=== PATIENT | female | born 1975 | race Caucasian/White ===

== ENCOUNTER 2021-07-22 06:52 | Outpatient (CLI) | payer OTHER, SELFPAY ==
[2021-07-22 07:39] LABS: Basophils Percent Auto 0.4 % (0.2-1.2); Eosinophils Absolute Auto 0.1 K/mm3 (0-0.3); Hemoglobin 12.6 g/dL (12.0-15.0); Immature Granulocyte Absolute 0.06 K/mm3 (0.00-0.031); Immature Granulocyte Percent A 0.8 % (0-0.5); Lymphocytes Absolute Auto 2.14 K/mm3 (0.9-3.2); Lymphocytes Percent Auto 30.3 % (18.3-44.2); Mean Corpuscular HGB Conc 31.5 g/dl (32-36); Mean Corpuscular Hemoglobin 26.5 pg (26-34); Mean Corpuscular Volume 84.2 fl (80-100); Mean Platelet Volume 9.9 fl (7.4-10.4); Monocytes Absolute Auto 0.6 K/mm3 (0.1-0.6); Monocytes Percent Auto 9.1 % (2.6-8.5); Neutrophils Absolute Auto 4.1 K/mm3 (1.3-6.7); Neutrophils Percent Auto 58.4 % (45.5-73.1); Platelet Count Result 325 k/mm3 (150-375); Red Blood Count 4.75 M/mm3 (4.2-5.4); Red Cell Distribution Width 15.3 % (11.5-14.5); White Blood Count 7.1 K/mm3 (4.5-10.0)
[2021-07-22 07:50] LABS: Alanine Aminotransferase 41 U/L (6-35); Albumin Level 4.3 g/dL (3.5-5.1); Alkaline Phosphatase 109 U/L (38-126); Anion Gap 11 mmol/L (8-16); Aspartate Amino Transferase 33 U/L (14-36); Bilirubin,Total 0.2 mg/dL (0.2-1.3); Blood Urea Nitrogen 21 mg/dL (7-17); Calcium 9.2 mg/dL (8.4-10.2); Carbon Dioxide 24 mmol/L (22-30); Chloride 105 mmol/L (98-107); Cholesterol 189 mg/dL (0-200); Estimated Glomerular Filt Rate > 60; Glucose 128 mg/dL (65-110); HDL Direct 42 mg/dL; Sodium 140 mmol/L (137-145); Triglycerides 269 mg/dL (<150)
[2021-07-22 07:53] LABS: Appearance Urine Clear (Clear); Bilirubin Urine Negative (Negative); Blood Urine Trace-lysed (Negative); Color Urine Yellow (Yellow); Glucose Urine UA Negative (Negative); Ketones Urine Negative (Negative); Leukocyte Esterase Ur Negative LEU/UL (Negative); Nitrate Urine Negative (Negative); Protein Urine Trace mg/dL (Negative); Specific Grav Ur >= 1.030 (1.001-1.035); Urobilinogen Urine 0.2 mg/dL (<2.0)
[2021-07-22 07:58] LABS: Hemoglobin A1C 6.5 % (<5.7)
[2021-07-22 08:00] LABS: Mucus Urine Rare /lpf; RBC Urine 0-2 /hpf (0-2); Squamous Epithelial Cell Urine Rare /hpf (Few); WBC Urine 0-3 /hpf
[2021-07-22 08:01] LABS: LDL Cholesterol Direct 93 mg/dL
[2021-07-22 08:03] LABS: Add Urine Microscopic? YES
[2021-07-22 08:38] LABS: Creatinine Urine 199.2 mg/dL
[2021-07-22 08:44] LABS: MALB Creatinine Ratio 17.1 mg/g (0-30); Microalbumin Urine Random 34.1 mg/L (0-16.7)
[2021-07-22 08:53] LABS: Free T4 Free Thyroxine 1.04 ng/mL (0.78-2.19)
[2021-07-25 05:11] LABS: Homocysteine 12.5 umol/L (<10.4)
[2021-07-25 05:35] LABS: Insulin Level Total 7.6 uIU/mL (<=19.6)
[2021-07-27 08:15] LABS: C-Peptide 2.04 ng/mL (0.80-3.85)
== END 2021-07-22 06:53 | disposition home or self-care (01) ==
LOC: ANHLAB 06:57
PROVIDERS: PCP Internal Medicine; Visit Provider Internal Medicine
DX: E11.9 Type 2 diabetes mellitus without complications (principal); E55.9 Vitamin D deficiency, unspecified; I10 Essential (primary) hypertension; Z13.29 Encounter for screening for other suspected endocrine disorder; Z13.220 Encounter for screening for lipoid disorders; Z79.899 Other long term (current) drug therapy
CPT/HCPCS: 36415; 80053; 80061; 81001; 82043; 82306; 83036; 83090; 83525; 84439; 84443; 84681; 85025

== ENCOUNTER 2021-08-13 09:01 | Outpatient (CLI) | payer OTHER, SELFPAY ==
--- NOTE | 2021-08-13 09:09 | ECHO_ITS ---
Patient Info Name: Mikala Hall Parent Age: 46 years : 1975 Gender: Female Ht: 69 in Wt: 210 lbs BSA: 2.18 m2 HR: 82 bpm BP: 125 / 93 mmHg Technical Quality: Good Exam Date: 08/13/2021 9:21 AM Exam Location: [facility] Patient Status: Outpatient Admit Date: 08/13/2021 Staff Ordering Physician: J Luis Kapoor MD Abalone Fisherman: Abigail Rae RDCS Attending Provider: J Luis Kapoor MD Referring Physician: Emelia ROSA; Exam Type: CA echo doppler color flow Study Info Indications R01.1 - Cardiac murmur, unspecified Complete two-dimensional, color flow and Doppler transthoracic echocardiogram is performed. Summary 1. Complete two-dimensional, color flow and Doppler transthoracic echocardiogram is performed. 2. Left ventricular chamber dimension is normal. 3. Left ventricular systolic function is normal, estimated at 60-65%. 4. The left ventricular diastolic function is grade I diastolic dysfunction. 5. Global longitudinal strain is normal at -18.2%. 6. There is mild aortic valve sclerosis. 7. There is mild aortic valve regurgitation. 8. No pulmonary hypertension, estimated pulmonary arterial systolic pressure is 18 mmHg. Left Ventricle Tissue doppler is not performed. Global longitudinal strain is normal at -18.2%. Left ventricular chamber dimension is normal. Left ventricular systolic function is normal, estimated at 60-65%. The left ventricular diastolic function is grade I diastolic dysfunction. Right Ventricle Right ventricular systolic function is normal and with normal TAPSE 1.9 cm. Right ventricular chamber dimension is normal. Left Atria Left atrial chamber dimension is normal. Right Atria Right atrial chamber dimension is normal. Aortic Valve The aortic valve is trileaflet. There is mild aortic valve sclerosis. There is no aortic valve stenosis. There is mild aortic valve regurgitation. Pulmonic Valve There is no pulmonic regurgitation. Mitral Valve There is no mitral valve stenosis. There is no mitral valve regurgitation. Tricuspid Valve There is no tricuspid valve regurgitation. No pulmonary hypertension, estimated pulmonary arterial systolic pressure is 18 mmHg. Pericardium/Pleural There is no pericardial effusion. Inferior Vena Cava Normal inferior vena cava with >50% collapse upon inspiration consistent with normal right atrial pressure, 5 mmHg. Aorta The aortic root size at the sinus of Valsalva is normal. Left Ventricular Outflow Tract Name Value Normal LVOT 2D LVOT Diameter 2.0 cm LVOT Doppler LVOT Peak Gradient 6 mmHg LVOT Mean Gradient 4 mmHg LVOT VTI 25 cm LVOT VTI/AV VTI Ratio 0.8 LVOT Stroke Volume 78 ml LVOT CO 6.3 l/min LVOT CI 2.9 l/min/m2 Pulmonic Valve Name Value Normal
[2021-08-13 13:15] LABS: Urine Cotinine NEGATIVE
== END 2021-08-13 09:02 | disposition home or self-care (01) ==
LOC: ANHCARD 09:01
PROVIDERS: PCP Internal Medicine; Visit Provider Internal Medicine
DX: R01.1 Cardiac murmur, unspecified (principal); E11.9 Type 2 diabetes mellitus without complications; I10 Essential (primary) hypertension; I35.1 Nonrheumatic aortic (valve) insufficiency
CPT/HCPCS: 80307; 93306

== ENCOUNTER 2021-10-03 13:37 | Outpatient (CLI) | payer OTHER, SELFPAY ==
--- NOTE | ~2021-10-03 | MR_ITS ---
EXAMINATION: MR brain/brain stem wo/w con DATE: 10/03/2021 14:44 INDICATION: Worsening daily headaches TECHNIQUE: Magnetic resonance imaging (MRI) of the brain and brainstem was performed without and with 18 mL MultiHance intravenous contrast. Sequences included sagittal and axial T1-weighted SE, axial d iffusion-weighted FS EPI ASSET, axial T2*-weighted GRE, axial T2-weighted FLAIR Propeller, and axial T2-weighted Propeller. Postcontrast axial and coronal T1-weighted SE was obtained. Apparent diffusion coefficient (ADC) maps were created. COMPARISON: None. FINDINGS: No abnormal restricted diffusion to suggest acute ischemic infarct. No MRI evidence of hemorrhage or extra-axial collection. No suspicious foci of susceptibility to suggest prior intraparenchymal hemorr joni. . Ventricular system is normal. Basal cisterns patent. Flow voids are preserved. Aerated spaces are arielle ar. No abnormal enhancement. IMPRESSION: 1. Normal brain MRI findings. Reviewed, dictated and finalized at location K.
[2021-10-03 14:24] LABS: Estimated Glomerular Filt Rate 59
== END 2021-10-03 13:38 | disposition home or self-care (01) ==
PROVIDERS: PCP Internal Medicine; Visit Provider Internal Medicine
DX: G43.909 Migraine, unspecified, not intractable, without status migrainosus (principal)
CPT/HCPCS: 70553; A9577

== ENCOUNTER 2022-01-16 07:48 | Outpatient (CLI) | payer OTHER, SELFPAY ==
--- NOTE | ~2022-01-16 | MM_ITS ---
EXAMINATION: MM screening michele BI w [place] HISTORY: Screening mammogram TECHNIQUE: Craniocaudal and mediolateral oblique 3-D tomosynthesis images were obtained and synthetic 2-D images were generated. CAD analysis was submitted and interpreted. COMPARISON: No prior mammogram is available for comparison at this institution. BREAST PARENCHYMAL COMPOSITION: The breasts are almost entirely fatty. FINDINGS: There is no evidence of suspicious mass, calcification, or architectural distortion to sugg est malignancy in either breast. There has been no suspicious interval change. IMPRESSION: 1. No mammographic evidence of malignancy. 2. Recommend routine screening mammography in one year. BI-RADS Category 1: Negative Reviewed, dictated and finalized at location A. DOM OF INFORMATION OFFICER
== END 2022-01-16 07:49 | disposition home or self-care (01) ==
PROVIDERS: PCP Internal Medicine; Visit Provider Internal Medicine
DX: Z12.31 Encounter for screening mammogram for malignant neoplasm of breast (principal)
CPT/HCPCS: 77063; 77067

== ENCOUNTER 2022-02-01 12:06 | Outpatient (CLI) | payer OTHER, SELFPAY ==
--- NOTE | ~2022-02-01 | XR_ITS ---
XR shoulder LT min 2V 02/01/2022 12:28 Indication: Left shoulder pain Procedure: 4 views left shoulder Comparison: No prior studies for comparison. Findings: No fracture, subluxation or dislocation. No significant soft tissue abnormality. No foreign bodies. There is mild osteoarthritis of the acromioclavicular joint. Impression: 1: Mild acromioclavicular joint osteoarthritis. Reviewed, dictated and finalized at location B. ESSIVE ART THERAPIST Impression: 1: Mild acromioclavicular joint osteoarthritis.
--- NOTE | ~2022-02-01 | XR_ITS ---
XR cervical spine 4-5V 02/01/2022 12:28 Indication: Neck pain. Procedure: 4 view cervical spine Comparison: No prior studies for comparison. Findings: There is straightening of cervical lordosis. There is degenerative retrolisthesis at C5-6. There is disc narrowing at this level. No fracture or traumatic malalignment. There is uncinate hyper trophy at C5-6. Odontoid process is normal. Lateral masses normally aligned. No prevertebral soft tis manuel abnormality. Impression: 1: Degenerative spondylosis at C5-6. 2: No acute abnormality of the cervical spine. Reviewed, dictated and finalized at location D. NIZATIONAL DEVELOPMENT MANAGER Impression: 1: Degenerative spondylosis at C5-6. 2: No acute abnormality of the cervical spine.
== END 2022-02-01 12:07 | disposition home or self-care (01) ==
LOC: ANHLAB 12:09
PROVIDERS: PCP Internal Medicine; Visit Provider Internal Medicine
DX: M47.892 Other spondylosis, cervical region (principal); M19.012 Primary osteoarthritis, left shoulder
CPT/HCPCS: 72050; 73030

== ENCOUNTER 2022-08-05 12:29 | Outpatient (CLI) | payer OTHER, SELFPAY ==
[2022-08-05 13:04] LABS: Basophils Percent Auto 0.3 % (0.2-1.2); Eosinophils Absolute Auto 0.1 K/mm3 (0-0.3); Eosinophils Percent Auto 1.5 % (0-4.4); Hematocrit 36.9 % (37.0-47.0); Immature Granulocyte Absolute 0.02 K/mm3 (0.00-0.031); Immature Granulocyte Percent A 0.2 % (0-0.5); Lymphocytes Absolute Auto 2.66 K/mm3 (0.9-3.2); Lymphocytes Percent Auto 29.8 % (18.3-44.2); Mean Corpuscular HGB Conc 29.8 g/dl (32-36); Mean Corpuscular Hemoglobin 22.3 pg (26-34); Mean Corpuscular Volume 74.7 fl (80-100); Mean Platelet Volume 10.1 fl (7.4-10.4); Monocytes Absolute Auto 0.7 K/mm3 (0.1-0.6); Monocytes Percent Auto 8.2 % (2.6-8.5); Neutrophils Absolute Auto 5.4 K/mm3 (1.3-6.7); Platelet Count Result 356 k/mm3 (150-375); Red Blood Count 4.94 M/mm3 (4.2-5.4); Red Cell Distribution Width 16.7 % (11.5-14.5); White Blood Count 8.9 K/mm3 (4.5-10.0)
[2022-08-05 13:12] LABS: Alanine Aminotransferase 31 U/L (6-35); Albumin Level 4.6 g/dL (3.5-5.1); Alkaline Phosphatase 87 U/L (38-126); Anion Gap 8 mmol/L (8-16); Aspartate Amino Transferase 35 U/L (14-36); Bilirubin,Total 0.5 mg/dL (0.2-1.3); Blood Urea Nitrogen 19 mg/dL (7-17); Calcium 8.8 mg/dL (8.4-10.2); Carbon Dioxide 28 mmol/L (22-30); Chloride 104 mmol/L (98-107); Cholesterol 137 mg/dL (0-200); Estimated Glomerular Filt Rate 59; Glucose 93 mg/dL (65-110); HDL Direct 48 mg/dL; Sodium 140 mmol/L (137-145); Triglycerides 170 mg/dL (<150)
[2022-08-05 13:16] LABS: Hemoglobin A1C 5.6 % (<5.7)
[2022-08-05 13:24] LABS: LDL Cholesterol Direct 58 mg/dL
[2022-08-05 13:34] LABS: Free T4 Free Thyroxine 0.95 ng/mL (0.78-2.19)
[2022-08-05 13:40] LABS: Platelet Estimate Adequate (Adequate)
[2022-08-05 13:41] LABS: Anisocytosis 1+ (NORMAL); Thyroid Stimulating Hormone 0.577 uIU/mL (0.465-4.680)
[2022-08-05 13:44] LABS: Hypochromasia 1+ (NORMAL); Ovalocytes 1+ (NORMAL); Schistocytes None Seen (NORMAL)
== END 2022-08-05 12:30 | disposition home or self-care (01) ==
PROVIDERS: PCP Internal Medicine; Visit Provider Internal Medicine
DX: D50.9 Iron deficiency anemia, unspecified (principal); E11.9 Type 2 diabetes mellitus without complications; R53.82 Chronic fatigue, unspecified; I10 Essential (primary) hypertension; Z79.899 Other long term (current) drug therapy
CPT/HCPCS: 36415; 80053; 80061; 83036; 84439; 84443; 85025

== ENCOUNTER 2022-12-20 07:00 | Outpatient (NON) | payer OTHER, SELFPAY | END 2022-12-20 07:01 | disposition home or self-care (01) | LOC: ANHLAB 12-22 12:04 | PROVIDERS: PCP Internal Medicine; Visit Provider Nurse Practitioner | DX: D48.5 Neoplasm of uncertain behavior of skin (principal) | CPT/HCPCS: 88305 ==

== ENCOUNTER 2023-02-08 13:06 | Outpatient (CLI) | payer OTHER, SELFPAY ==
[2023-02-08 14:07] LABS: Alanine Aminotransferase 19 U/L (6-35); Albumin Level 4.3 g/dL (3.5-5.1); Alkaline Phosphatase 77 U/L (38-126); Anion Gap 11 mmol/L (8-16); Aspartate Amino Transferase 28 U/L (14-36); Bilirubin,Total 0.6 mg/dL (0.2-1.3); Blood Urea Nitrogen 12 mg/dL (7-17); CRP 0.8 mg/dL (<1.0); Calcium 9.5 mg/dL (8.4-10.2); Carbon Dioxide 26 mmol/L (22-30); Chloride 103 mmol/L (98-107); Cholesterol 180 mg/dL (0-200); Estimated Glomerular Filt Rate > 60; Glucose 122 mg/dL (65-110); HDL Direct 47 mg/dL; Potassium 4.1 mmol/L (3.4-5.0); Rheumatoid Factor < 12.0 IU/ML (<12); Sodium 140 mmol/L (137-145); Triglycerides 203 mg/dL (<150)
[2023-02-08 14:17] LABS: LDL Cholesterol Direct 85 mg/dL
[2023-02-08 14:31] LABS: Erythrocyte Sedimentation Rate 24 mm/hr (0-20)
[2023-02-08 15:08] LABS: Hemoglobin A1C 5.5 % (<5.7)
[2023-02-08 15:19] LABS: Iron 26 ug/dL (37-170)
[2023-02-08 15:21] LABS: Folic Acid 9.2 ng/mL (2.76->20)
[2023-02-08 15:28] LABS: Percent Iron Saturation 7 % (20-50)
[2023-02-08 15:37] LABS: Free T4 Free Thyroxine 1.18 ng/mL (0.78-2.19)
[2023-02-08 15:44] LABS: Vitamin D 25 Hydroxy 24.7 ng/mL
[2023-02-08 15:55] LABS: Ferritin 4.54 ng/mL (6.24-137)
== END 2023-02-08 13:07 | disposition home or self-care (01) ==
LOC: ANHLAB 13:08
PROVIDERS: PCP Internal Medicine; Visit Provider Internal Medicine
DX: D50.9 Iron deficiency anemia, unspecified (principal); E11.9 Type 2 diabetes mellitus without complications; I10 Essential (primary) hypertension; K50.90 Crohn's disease, unspecified, without complications; N64.82 Hypoplasia of breast; R01.1 Cardiac murmur, unspecified; R53.82 Chronic fatigue, unspecified; Z79.899 Other long term (current) drug therapy
CPT/HCPCS: 36415; 80053; 80061; 82306; 82607; 82728; 82746; 83036; 83540; 83550; 84439; 84443; 85652; 86140; 86430

== ENCOUNTER 2023-02-25 04:14 | Day surgery (SDC) | payer OTHER, SELFPAY ==
[2023-02-10 10:53] VITALS: BMI 22.9
--- NOTE | 2023-02-23 12:02 | SUR.PREOP ---
Patient called regarding upcoming procedure. Message left on patient' s voicemail regarding appointment times.
[2023-02-25 06:30] VITALS: BP 92/59; PULSE 84; RESP 16; TEMP 35.8; O2SAT 100; BMI 22.8
[2023-02-25] MEDS: LACTATED RINGERS 1,000 ML 150 ML IV CONT (06:48)
--- NOTE | 2023-02-25 06:49 | WPDANESEPPF ---
Anes - Initial Pre Proc Eval Procedure: Operation Date: 02/25/23 07:30 Proposed Procedures p Screening Colonoscopy - Quan Conde MD Date/Time: 02/25/23 06:49 Surgeon: Quan Conde MD Pre Op Diagnosis: neoplasm screening Patient Data Age: 47 Gender: F Height: 1.75 m Weight: 70.2 kg Last Vital Signs Temp 35.8 C L 02/25/23 06:30 Pulse 84 02/25/23 06:30 Resp 16 02/25/23 06:30 BP 92/59 L 02/25/23 06:30 Pulse Ox 100 02/25/23 06:30 O2 Del Method Room Air 02/25/23 06:30 Allergies Allergy/AdvReac Type Severity Reaction Status Date / Time sulfamethizole Allergy Unknown Other Verified 02/25/23 06:37 sulfanilamide Allergy Unknown Other Verified 02/25/23 06:37 trimethoprim Allergy Unknown Other Verified 02/25/23 06:37 Home Medications Medication Instructions Recorded Confirmed Type blood sugar diagnostic (Blood #100 ea 07/13/21 02/25/23 Rx Glucose Test strips) blood-glucose meter (Blood Glucose #1 ea 07/13/21 02/25/23 Rx Monitoring kit) lancets 26 gauge #100 ea 07/13/21 02/25/23 Rx cholecalciferol (vitamin D3) 50 50 mcg PO DAILY #90 caps 07/22/21 02/25/23 Rx mcg (2,000 unit) capsule escitalopram oxalate 10 mg tablet 10 mg PO DAILY #30 tabs 01/17/23 02/25/23 Rx lorazepam 0.5 mg tablet 0.5 mg PO TID PRN anxiety #60 tabs 02/08/23 02/25/23 Rx biotin 5,000 mcg chewable tablet 5,000 mcg PO DAILY 02/10/23 02/25/23 History ferrous sulfate 325 mg (65 mg 325 mg PO DAILY 02/10/23 02/25/23 History iron) tablet (Iron (ferrous sulfate)) omega-3 fatty acids-vitamin E 1 cap PO DAILY 02/10/23 02/25/23 History 1,000 mg capsule losartan 100 mg tablet 100 mg PO DAILY #90 tabs 02/22/23 02/25/23 Rx metformin 500 mg tablet 500 mg PO BID #180 tabs 02/22/23 02/25/23 Rx rosuvastatin 10 mg tablet 10 mg PO DAILY #90 tabs 02/22/23 02/25/23 Rx tirzepatide 5 mg/0.5 mL 5 mg (0.5 mL) subcut WEEKLY #2 mL 02/22/23 02/25/23 Rx subcutaneous pen injector (Mounjaro) Patient hx anesthesia problems: none Family hx anesthesia problems: none Results Review: All pre-operative results and documents have been reviewed as part of the pre-operative evaluation. [facility] Past Medical History Medical History Anxiety with depression Attention deficit hyperactivity disorder (ADHD), combined type (04/24/15) Benign essential hypertension BMI 32.0-32.9,adult Breast cancer screening Chronic fatigue Chronic low back pain Crohn's disease Current nicotine use Encounter to establish care Heart murmur Hip pain, left History of kidney stones Hypertension Insulin controlled gestational diabetes mellitus (GDM) in second trimester Iron deficiency anemia On correction drug therapy Petechial rash Pneumonia of left lower lobe due to infectious organism Sciatica, left side Shortness of breath after COVID-19 vaccination Type 2 diabetes mellitus without complications Surgical History Surgical History History of tonsillectomy Hx of lithotripsy Family History Family History Mother Hypertension Family history of hypothyroidism Father Hypertension Family history of hyperthyroidism Other Family history of arthritis Social History Social History Smoking packs per day: 0.5 Smoking cigarettes per day: 10.0 Years smoked: 30 Smoking pack-years: 15.00 Smoking status: Former smoker Tobacco type: cigarettes Second hand tobacco smoke exposure: Yes Alcohol intake: current Alcohol use details: 4 drinks monthly Substance use type: does not use Living arrangements: with family Spiritual care concerns: No Anes - Eval Final PreProcedure Day of Procedure 02/25/23 06:49 Patient weight: normal Heart: regular rate and rhythm Lungs: clear to ausculta
[2023-02-25 06:53] LABS: Glucose Point of Care 82 mg/dl (65-105)
--- NOTE | 2023-02-25 07:24 | PM.HPGS ---
History of Present Illness History of Present Illness Consent: Risks, benefits, and alternatives have been discussed and questions answered. Patient agrees to proceed with procedure. Chief complaint: neoplasm screening Narrative: Mikala Hall Parent is a 47 year old female with Crohn's diagnosed in 2011 but she is not taking any medication and never has been on biologics, she tried in the past steroids, she has intermittent diarrhea. Last colonoscopy 3 years ago Review of Systems Constitutional: Constitutional: Denies headache(s) and Denies weakness Eyes: Eyes: Denies blurry vision ENT: Reports Normal hearing present, Denies headache(s) and Denies neck pain Cardiovascular: Cardiovascular: Denies chest pain and Denies dyspnea Respiratory: Respiratory: Denies dyspnea Gastrointestinal: Gastrointestinal: Reports no additional gastrointestinal complaints Genitourinary: Genitourinary: Denies dysuria Musculoskeletal: Musculoskeletal: Denies neck pain Integumentary/Breasts: Skin/Breast: Denies dry skin Neurologic: Reports Normal hearing present, Denies headache(s) and Denies weakness Psychiatric: Psychiatric: Denies anxiety Endocrine: Endocrine: Denies change in body appearance Hematologic/Lymphatic: Hematologic/Lymphatic: Denies easy bleeding Allergic/Immunologic: Allergic/Immunologic: Denies urticaria PMFSH Past Medical History Medical History Anxiety with depression Attention deficit hyperactivity disorder (ADHD), combined type (04/24/15) Benign essential hypertension BMI 32.0-32.9,adult Breast cancer screening Chronic fatigue Chronic low back pain Crohn's disease Current nicotine use Encounter to establish care Heart murmur Hip pain, left History of kidney stones Hypertension Insulin controlled gestational diabetes mellitus (GDM) in second trimester Iron deficiency anemia On [facility] drug therapy Petechial rash Pneumonia of left lower lobe due to infectious organism Sciatica, left side Shortness of breath after COVID-19 vaccination Type 2 diabetes mellitus without complications Surgical History Surgical History History of tonsillectomy Hx of lithotripsy Family History Family History Mother Hypertension Family history of hypothyroidism Father Hypertension Family history of hyperthyroidism Other Family history of arthritis Social History Social History Smoking packs per day: 0.5 Smoking cigarettes per day: 10.0 Years smoked: 30 Smoking pack-years: 15.00 Smoking status: Former smoker Tobacco type: cigarettes Second hand tobacco smoke exposure: Yes Alcohol intake: current Alcohol use details: 4 drinks monthly Substance use type: does not use Living arrangements: with family Spiritual care concerns: No Meds Home Medications and Allergies Home Medications Medication Instructions Recorded Confirmed Type blood sugar diagnostic (Blood #100 ea 07/13/21 02/25/23 Rx Glucose Test strips) blood-glucose meter (Blood Glucose #1 ea 07/13/21 02/25/23 Rx Monitoring kit) lancets 26 gauge #100 ea 07/13/21 02/25/23 Rx cholecalciferol (vitamin D3) 50 50 mcg PO DAILY #90 caps 07/22/21 02/25/23 Rx mcg (2,000 unit) capsule escitalopram oxalate 10 mg tablet 10 mg PO DAILY #30 tabs 01/17/23 02/25/23 Rx lorazepam 0.5 mg tablet 0.5 mg PO TID PRN anxiety #60 tabs 02/08/23 02/25/23 Rx biotin 5,000 mcg chewable tablet 5,000 mcg PO DAILY 02/10/23 02/25/23 History ferrous sulfate 325 mg (65 mg 325 mg PO DAILY 02/10/23 02/25/23 History iron) tablet (Iron (ferrous sulfate)) omega-3 fatty acids-vitamin E 1 cap PO DAILY 02/10/23 02/25/23 History 1,000 mg capsule losartan 100 mg tablet 100 mg PO DAILY #90 tabs 02/22/23 02/25/23 Rx metformin 500 mg tablet 500
[2023-02-25 07:46] VITALS: BP 85/54; PULSE 72; RESP 20; O2SAT 98
[2023-02-25 07:56] VITALS: BP 98/63; PULSE 78; RESP 32; O2SAT 100
[2023-02-25 08:06] VITALS: BP 102/68; PULSE 68; RESP 23; O2SAT 100
== END 2023-02-25 08:11 | disposition home or self-care (01) ==
PROVIDERS: PCP Internal Medicine; Visit Provider Internal Medicine Gastroenterology
PROC: 0DJD8ZZ Inspection of Lower Intestinal Tract, Via Natural or Artificial Opening Endoscopic (ICD-10-PCS; CPT 45378; principal; 2023-02-25 07:30)
DX: Z12.11 Encounter for screening for malignant neoplasm of colon (principal); K50.114 Crohn's disease of large intestine with abscess; K52.9 Noninfective gastroenteritis and colitis, unspecified; K63.3 Ulcer of intestine; F41.8 Other specified anxiety disorders; I10 Essential (primary) hypertension; E11.9 Type 2 diabetes mellitus without complications; Z87.891 Personal history of nicotine dependence
CPT/HCPCS: 45380; 82948; 88305; J2001; J2704; J7120

== ENCOUNTER 2023-04-15 12:17 | Emergency (ER) | payer OTHER, SELFPAY ==
[2023-04-15] VITALS (11 sets, daily range): BP systolic 94–120; BP diastolic 64–79; PULSE 78–83; RESP 16–18; TEMP 36.7; O2SAT 98–100
--- NOTE | ~2023-04-15 | CT_ITS ---
EXAMINATION: CT abdomen pelvis w con DATE: 04/15/2023 19:31 INDICATION: Periumbilical tenderness and diarrhea TECHNIQUE: Computed tomography (CT) of the abdomen and pelvis was performed with 100 mL Omnipaque-350 intravenous contrast. Automated exposure control and iterative reconstruction technique were employe d. The dose-length product was 421.62 mGy-cm. COMPARISON: 06/01/2010 FINDINGS: Lung bases are clear. Heart size is normal. No pericardial or pleural effusion. Small amount of ather osclerotic coronary artery calcific location. Again seen is a region of now more subtle focal hepatic steatosis along the ligamentum teres. Gallbladder, spleen, pancreas and bilateral adrenal glands are normal. Couple left renal cysts the larger exophytic cyst measuring 1.0 cm. 2 mm nonobstructing ston e in an upper pole calyx of the right kidney. There is fluid throughout the small bowel and colon con sistent with provided history of diarrhea. There are some mild wall thickening and relatively feature less mucosal pattern to the terminal ileum consistent with likely acute on chronic terminal ileitis r elated to known history of Crohn's disease. Normal appendix. Bladder, uterus and bilateral adnexa are normal. No free intraperitoneal gas or fluid. No pathologically enlarged abdominal or pelvic lymphad enopathy. Mild lumbar levocurvature with mild spondylosis. IMPRESSION: 1. Diarrhea and likely acute on chronic terminal ileitis consistent with known history of Crohn's dis ease. 2. Nonobstructing 2 mm right renal stone. Reviewed, dictated and finalized at location A. AL ASSOCIATE IMPRESSION: 1. Diarrhea and likely acute on chronic terminal ileitis consistent with known history of Crohn's disease. 2. Nonobstructing 2 mm right renal stone.
--- NOTE | 2023-04-15 18:18 | ED.GENADULT ---
HPI - General Adult General Chief complaint: Abdominal Pain Stated complaint: abd pain Time Seen by Provider: 04/15/23 18:12 Source: patient Mode of arrival: ambulatory Limitations: no limitations History of Present Illness HPI narrative: This is a 39-year-old female who presents to the ED with chief complaint of abdominal pain beginning earlier today. Reports it is periumbilical and does not radiate. Reports history of ulcerative colitis and she has had many episodes of diarrhea. denies any GI bleeding symptoms. Denies nausea, vomiting, fevers, chills, any recent illness. She has been taking mesalamine with good suppression of her IBD. denies urinary symptoms. Related Data Home Medications Medication Instructions Recorded Confirmed biotin 5,000 mcg chewable tablet 5,000 mcg PO DAILY 02/10/23 02/25/23 ferrous sulfate 325 mg (65 mg 325 mg PO DAILY 02/10/23 02/25/23 iron) tablet (Iron (ferrous sulfate)) omega-3 fatty acids-vitamin E 1 cap PO DAILY 02/10/23 02/25/23 1,000 mg capsule Allergies Allergy/AdvReac Type Severity Reaction Status Date / Time sulfamethizole Allergy Unknown Other Verified 02/25/23 06:37 sulfanilamide Allergy Unknown Other Verified 02/25/23 06:37 trimethoprim Allergy Unknown Other Verified 02/25/23 06:37 Review of Systems Review of Systems: All systems as dictated in HPI [facility] Past Medical History Medical History Anxiety with depression Attention deficit hyperactivity disorder (ADHD), combined type (04/24/15) Benign essential hypertension BMI 32.0-32.9,adult Breast cancer screening Chronic fatigue Chronic low back pain Crohn's disease Current nicotine use Encounter to establish care Heart murmur Hip pain, left History of kidney stones Hypertension Insulin controlled gestational diabetes mellitus (GDM) in second trimester Iron deficiency anemia On care home drug therapy Petechial rash Pneumonia of left lower lobe due to infectious organism Sciatica, left side Shortness of breath after COVID-19 vaccination Type 2 diabetes mellitus without complications Surgical History Surgical History History of tonsillectomy Hx of lithotripsy Family History Family History Mother Hypertension Family history of hypothyroidism Father Hypertension Family history of hyperthyroidism Other Family history of arthritis Social History Social History Smoking packs per day: 0.5 Smoking cigarettes per day: 10.0 Years smoked: 30 Smoking pack-years: 15.00 Smoking status: Former smoker Tobacco type: cigarettes Second hand tobacco smoke exposure: Yes Alcohol intake: current Alcohol use details: 4 drinks monthly Substance use type: does not use Living arrangements: with family Spiritual care concerns: No Exam Narrative: GENERAL: Well-appearing, well-nourished, and in no acute distress. HEAD: Normocephalic, atraumatic. EYES: PERRLA and EOMI. ENT: Nares clear, no rhinorrhea or epistaxis. Mucous membranes moist. Oropharynx without tonsillar hypertrophy exudate or other lesions. NECK: Supple. No adenopathy or masses. CHEST: No respiratory distress. Clear to auscultation. No wheezes rales or rhonchi HEART: Regular rate and rhythm. No murmur heard. Normal peripheral pulses. ABDOMEN: Mild periumbilical tenderness. Soft, otherwise nontender, nondistended, normal active bowel sounds. MSK: Normal range of motion. No edema. SKIN: Warm, dry, no rash. NEURO: Alert and oriented x3. No focal deficits. PSYCH: Normal mood and affect. Course Vital Signs Vital signs: Vital Signs Temperature 98.0 F 04/15/23 13:22 Pulse Rate 78 04/15/23 13:22 Respiratory Rate 16 04/15/23 13:22 Blood Pressure 94/64 L 04/15/23 13:22 Pulse Ox
[2023-04-15 18:49] LABS: Basophils Percent Auto 0.4 % (0.2-1.2); Eosinophils Absolute Auto 0.1 K/mm3 (0-0.3); Eosinophils Percent Auto 0.9 % (0-4.4); Hematocrit 38.6 % (37.0-47.0); Hemoglobin 11.6 g/dL (12.0-15.0); Immature Granulocyte Absolute 0.01 K/mm3 (0.00-0.031); Immature Granulocyte Percent A 0.1 % (0-0.5); Lymphocytes Absolute Auto 2.11 K/mm3 (0.9-3.2); Lymphocytes Percent Auto 27.9 % (18.3-44.2); Mean Corpuscular HGB Conc 30.1 g/dl (32-36); Mean Corpuscular Hemoglobin 21.4 pg (26-34); Mean Corpuscular Volume 71.2 fl (80-100); Mean Platelet Volume 9.9 fl (7.4-10.4); Monocytes Absolute Auto 1.1 K/mm3 (0.1-0.6); Monocytes Percent Auto 15.1 % (2.6-8.5); Neutrophils Absolute Auto 4.2 K/mm3 (1.3-6.7); Neutrophils Percent Auto 55.6 % (45.5-73.1); Platelet Count Result 422 k/mm3 (150-375); Red Blood Count 5.42 M/mm3 (4.2-5.4); Red Cell Distribution Width 18.9 % (11.5-14.5); White Blood Count 7.6 K/mm3 (4.5-10.0)
[2023-04-15] MEDS: SODIUM CHLORIDE 0.9% IV 1,000 ML 999 ML IV CONT (18:53)
[2023-04-15] MEDS: MORPHINE SULFATE (*CRX) 4 MG/ML INJ IV PUSH (18:53)
[2023-04-15] MEDS: ONDANSETRON INJ 4 MG/2 ML VIAL IV PUSH (18:53)
[2023-04-15 19:04] LABS: Alanine Aminotransferase 11 U/L (6-35); Albumin Level 4.2 g/dL (3.5-5.1); Alkaline Phosphatase 83 U/L (38-126); Anion Gap 10 mmol/L (8-16); Aspartate Amino Transferase 24 U/L (14-36); Bilirubin,Total 0.7 mg/dL (0.2-1.3); Blood Urea Nitrogen 19 mg/dL (7-17); Calcium 9.8 mg/dL (8.4-10.2); Carbon Dioxide 26 mmol/L (22-30); Chloride 105 mmol/L (98-107); Estimated CRCL calculation 58 ml/min; Estimated Glomerular Filt Rate 53; Glucose 95 mg/dL (65-110); Lipase 23 U/L (23-300); Potassium 3.5 mmol/L (3.4-5.0); Sodium 141 mmol/L (137-145)
[2023-04-15 19:13] LABS: Anisocytosis 1+ (NORMAL); Ovalocytes 1+ (NORMAL); Platelet Estimate Increased (Adequate)
[2023-04-15 19:14] LABS: Schistocytes None Seen (NORMAL)
--- NOTE | 2023-04-15 19:19 | PC.NURSE ---
this rn assumed care of patient. this rn took patient report from america potts.
[2023-04-15 19:45] LABS: Appearance Urine Clear (Clear); Bacteria Urine 2+ /hpf; Bilirubin Urine Negative (Negative); Blood Urine Negative (Negative); Color Urine Yellow (Yellow); Glucose Urine UA Negative (Negative); Ketones Urine 1+ mg/dL (Negative); Leukocyte Esterase Ur Negative LEU/UL (Negative); Nitrate Urine Negative (Negative); Non Pathogenic Casts 0-2; Protein Urine Trace mg/dL (Negative); Specific Grav Ur 1.018 (1.001-1.035); Squamous Epithelial Cell Urine Few /hpf (Few); Urobilinogen Urine 0.2 mg/dL (<2.0); WBC Urine 0-5 /hpf; pH Urine 5.5 (5.0-9.0)
[2023-04-15 19:46] LABS: Add Urine Microscopic? YES
== END 2023-04-15 21:06 | disposition home or self-care (01) ==
PROVIDERS: Emergency Medicine; Emergency Provider Physician Assistant; PCP Internal Medicine
DX: K51.90 Ulcerative colitis, unspecified, without complications (principal); I10 Essential (primary) hypertension; E11.9 Type 2 diabetes mellitus without complications; D50.9 Iron deficiency anemia, unspecified; Z87.01 Personal history of pneumonia (recurrent); Z87.442 Personal history of urinary calculi; Z87.891 Personal history of nicotine dependence; Z79.85 Long-term (current) use of injectable non-insulin antidiabetic drugs; Z79.84 Long term (current) use of oral hypoglycemic drugs
CPT/HCPCS: 36415; 74177; 80053; 81001; 81025; 83690; 85025; 96361; 96374; 96375; 99284; J1100; J2270; J2405; J7030; Q9967

== ENCOUNTER 2023-06-22 12:06 | Outpatient (CLI) | payer OTHER, SELFPAY ==
[2023-06-22 12:55] LABS: Hematocrit 39.5 % (37.0-47.0); Mean Corpuscular HGB Conc 30.4 g/dl (32-36); Mean Corpuscular Hemoglobin 23.1 pg (26-34); Mean Corpuscular Volume 76.1 fl (80-100); Mean Platelet Volume 9.7 fl (7.4-10.4); Platelet Count Result 386 k/mm3 (150-375); Red Blood Count 5.19 M/mm3 (4.2-5.4); White Blood Count 8.4 K/mm3 (4.5-10.0)
[2023-06-22 13:13] LABS: Alanine Aminotransferase 21 U/L (6-35); Albumin Level 4.8 g/dL (3.5-5.1); Alkaline Phosphatase 90 U/L (38-126); Anion Gap 7 mmol/L (4-12); Aspartate Amino Transferase 38 U/L (14-36); Bilirubin,Total 0.6 mg/dL (0.2-1.3); Blood Urea Nitrogen 19 mg/dL (7-17); CRP < 0.5 mg/dL (<1.0); Calcium 9.9 mg/dL (8.4-10.2); Carbon Dioxide 29 mmol/L (22-30); Chloride 105 mmol/L (98-107); Estimated Glomerular Filt Rate > 60; Glucose 88 mg/dL (65-110); Potassium 4.3 mmol/L (3.4-5.0); Sodium 141 mmol/L (137-145)
[2023-06-22 13:33] LABS: Erythrocyte Sedimentation Rate 15 mm/hr (0-20)
[2023-06-22 14:11] LABS: Hepatitis B Surface Antigen Negative (Negative)
[2023-06-22 14:28] LABS: Hepatitis B Surface Anti Res Negative
[2023-06-24 16:49] LABS: NIL 0.02 IU/mL; Quantiferon TB Plus, 1T NEGATIVE (NEGATIVE); TB1-NIL 0.01 IU/mL; TB2-NIL 0.01 IU/mL
[2023-06-29 02:08] LABS: Hepatitis B Core Ab Total NON-REACTIVE (NON-REACTIVE)
== END 2023-06-22 12:07 | disposition home or self-care (01) ==
LOC: ANHLAB 12:07
PROVIDERS: PCP Internal Medicine; Visit Provider Internal Medicine Gastroenterology
DX: K50.90 Crohn's disease, unspecified, without complications (principal)
CPT/HCPCS: 36415; 80053; 85027; 85652; 86140; 86480; 86704; 86706; 87340

== ENCOUNTER 2023-09-22 16:18 | Outpatient (CLI) | payer OTHER, SELFPAY ==
--- NOTE | ~2023-09-22 | XR_ITS ---
EXAMINATION: XR thoracic spine 3V DATE: 09/22/2023 17:00 INDICATION: Low back pain, unspecified. TECHNIQUE: 3 views of thoracic spine on 4 radiographs were obtained. COMPARISON: None. FINDINGS: Bone alignment is normal. There is mild chronic anterior wedging of T11, T12, and L1 verteb ral bodies. There are endplate osteophytes at most levels. Intervertebral disc heights are normal. IMPRESSION: 1. Mild thoracic spondylosis. Reviewed, dictated and finalized at location E.
--- NOTE | ~2023-09-22 | XR_ITS ---
EXAMINATION: XR cervical spine 4-5V DATE: 09/22/2023 17:00 INDICATION: Back pain. TECHNIQUE: 5 views of cervical spine including flexion and extension views were obtained. COMPARISON: Cervical spine radiographs 02/01/2022 FINDINGS: There is mild kyphosis of lower cervical spine. There is 5 degrees levocurvature of cervica l spine. There is no abnormal motion on flexion or extension. Vertebral body heights are normal. Ther e is mildly decreased disc height at C5-C6. At C5-C6, there is severe right and moderate left uncover tebral joint osteoarthritis. There is facet joints are unremarkable. There is mild central canal sten osis at C5-6. No prevertebral soft tissue swelling. IMPRESSION: 1. Mild cervical spondylosis. Reviewed, dictated and finalized at location E.
--- NOTE | ~2023-09-22 | XR_ITS ---
EXAMINATION: XR lumbar spine min 4V DATE: 09/22/2023 17:00 INDICATION: Low back pain, unspecified. TECHNIQUE: 5 views of lumbar spine were obtained. COMPARISON: CT abdomen and pelvis 04/15/2023 FINDINGS: There is 5 degrees levocurvature of lumbar spine. There is mild chronic anterior wedging of L1 vertebral body. There are endplate osteophytes at most levels. Intervertebral disc heights are no rmal. There is multilevel facet joint osteoarthritis, severe in lower lumbar spine. IMPRESSION: 1. Mild lumbar spondylosis. Reviewed, dictated and finalized at location E. IMPRESSION: 1. Mild lumbar spondylosis.
== END 2023-09-22 16:19 | disposition home or self-care (01) ==
PROVIDERS: PCP Internal Medicine; Visit Provider Internal Medicine
DX: M47.896 Other spondylosis, lumbar region (principal); M47.892 Other spondylosis, cervical region; M47.894 Other spondylosis, thoracic region; Z98.890 Other specified postprocedural states
CPT/HCPCS: 72050; 72072; 72110

== ENCOUNTER 2023-10-14 13:49 | Outpatient (CLI) | payer OTHER, SELFPAY ==
--- NOTE | ~2023-10-14 | MM_ITS ---
EXAMINATION: MM screening michele BI w [place] HISTORY: Screening TECHNIQUE: Craniocaudal and mediolateral oblique 3-D tomosynthesis images were obtained and synthetic 2-D images were generated. CAD analysis was submitted and interpreted. COMPARISON: 01/16/2022 BREAST PARENCHYMAL COMPOSITION: Not dense: There are scattered areas of fibroglandular density. FINDINGS: There is no evidence of suspicious mass, calcification, or architectural distortion to sugg est malignancy in either breast. There has been no suspicious interval change. IMPRESSION: 1. No mammographic evidence of malignancy. 2. Recommend routine screening mammography in one year. BI-RADS Category 1: Negative Reviewed, dictated and finalized at location B.
== END 2023-10-14 13:50 | disposition home or self-care (01) ==
PROVIDERS: PCP Internal Medicine; Visit Provider Internal Medicine
DX: Z12.31 Encounter for screening mammogram for malignant neoplasm of breast (principal)
CPT/HCPCS: 77063; 77067

== ENCOUNTER 2023-11-24 08:24 | Outpatient (CLI) | payer OTHER, SELFPAY ==
[2023-11-24 09:50] LABS: Hemoglobin A1C 5.6 % (<5.7)
[2023-11-24 09:52] LABS: Alanine Aminotransferase 20 U/L (6-35); Albumin Level 4.5 g/dL (3.5-5.1); Alkaline Phosphatase 81 U/L (38-126); Anion Gap 10 mmol/L (4-12); Aspartate Amino Transferase 36 U/L (14-36); Bilirubin,Total 0.6 mg/dL (0.2-1.3); Blood Urea Nitrogen 20 mg/dL (7-17); Calcium 9.6 mg/dL (8.4-10.2); Carbon Dioxide 31 mmol/L (22-30); Chloride 98 mmol/L (98-107); Cholesterol 132 mg/dL (0-200); Estimated Glomerular Filt Rate 53; Glucose 81 mg/dL (65-110); HDL Direct 49 mg/dL; Magnesium 2.1 mg/dL (1.6-2.3); Potassium 4.2 mmol/L (3.4-5.0); Sodium 139 mmol/L (137-145); Triglycerides 100 mg/dL (<150)
[2023-11-24 10:04] LABS: LDL Cholesterol Direct 47 mg/dL
[2023-11-24 10:23] LABS: Thyroid Stimulating Hormone 0.149 uIU/mL (0.465-4.680)
[2023-11-24 11:34] LABS: Iron 81 ug/dL (37-170)
[2023-11-24 11:44] LABS: Percent Iron Saturation 18 % (20-50)
[2023-11-24 11:54] LABS: Free T4 Free Thyroxine 1.18 ng/mL (0.78-2.19); Vitamin D 25 Hydroxy 29.3 ng/mL
[2023-11-25 10:28] LABS: Ionized Calcium 5.1 mg/dL (4.7-5.5)
== END 2023-11-24 08:25 | disposition home or self-care (01) ==
LOC: ANHLAB 08:25
PROVIDERS: PCP Internal Medicine; Visit Provider Internal Medicine
DX: D50.9 Iron deficiency anemia, unspecified (principal); E11.9 Type 2 diabetes mellitus without complications; I10 Essential (primary) hypertension; K50.90 Crohn's disease, unspecified, without complications; R53.82 Chronic fatigue, unspecified; Z79.899 Other long term (current) drug therapy; R41.82 Altered mental status, unspecified
CPT/HCPCS: 36415; 80053; 80061; 82306; 82330; 82607; 82728; 82746; 83036; 83540; 83550; 83735; 84439; 84443

== ENCOUNTER 2023-11-25 06:32 | Outpatient (CLI) | payer OTHER, SELFPAY ==
--- NOTE | 2023-11-28 12:12 | WPDNEUROLOGY ---
Neurology EEG Report General Information Date of Study: 11/25/23 TEST Electroencephalogram DIAGNOSIS possible seizure disorder CONDITION OF RECORDING in lab recording EEG NUMBER [id number] CLINICAL HISTORY the patient is a 48-year-old with history that 2 weeks ago she went to go to the bathroom and disappear for about 3 hours before she was located several miles from where she was and does not remember anything for 3 hours. EEG DESCRIPTION This is a 21 channel recording done in the neurology Lab using 10-20 system electrode placement. During wakefulness the background activity consists of posterior dominant alpha rhythm at 10 hertz with an amplitude of 35-70 microvolts which appears well-formed and reactive to eye opening. Anteriorly low amplitude mixed frequency activity was seen. Hyperventilation not performed. Photic should help performed to which no significant abnormal background changes were seen. Occasional sharp transients are seen over left mid temporal area. Later on a prolonged burst of spikes intermixed with beta activity was seen confined to the left mid temporal electrode with very little effect on the nearby electrodes. the discharge lasted for approximately 480 seconds. The patient did not progress to stage 2 sleep. IMPRESSION The EEG shows significant finding of focal sharp waves initially presenting as isolated bursts however later on prolonged spike discharge along with changes in background activity was seen however this is confined to the left mid temporal area. The discharge lasted for approximately 8 minutes. No electrode artifacts were identified and hence this appears to be significant findings suggestive of focal epileptiform abnormality. Careful clinical and radiological correlation are recommended
== END 2023-11-25 06:33 | disposition home or self-care (01) ==
LOC: ANHNEURO 06:34
PROVIDERS: PCP Internal Medicine; Visit Provider Internal Medicine
DX: R55 Syncope and collapse (principal); R41.3 Other amnesia; R94.01 Abnormal electroencephalogram [EEG]
CPT/HCPCS: 95816

== ENCOUNTER 2023-11-29 13:08 | Outpatient (CLI) | payer OTHER, SELFPAY ==
--- NOTE | ~2023-11-29 | MR_ITS ---
EXAMINATION: MR brain/brain stem wo/w con DATE: 11/29/2023 13:45 INDICATION: Altered mental status, unspecified. TECHNIQUE: Magnetic resonance imaging (MRI) of the brain and brainstem was performed without and with 15 mL MultiHance intravenous contrast. COMPARISON: Brain MRI 10/03/2021 FINDINGS: The cerebellar tonsils extend 6 mm inferior to foramen magnum, consistent with Chiari 1 mal formation. There are scattered areas of nonspecific increased T2-weighted signal intensity in the cer ebral white matter, which is within normal limits for the patient's age. There is no intracranial hem orrhage, acute infarction, or abnormal intracranial mass lesion. The ventricles are normal in size. T he orbits are normal. The paranasal sinuses are clear. The mastoid air cells are normal. IMPRESSION: 1. Chiari 1 malformation. Reviewed, dictated and finalized at location A. IMPRESSION: 1. Chiari 1 malformation.
== END 2023-11-29 13:09 | disposition home or self-care (01) ==
PROVIDERS: PCP Internal Medicine; Visit Provider Internal Medicine
DX: G93.5 Compression of brain (principal); R41.82 Altered mental status, unspecified
CPT/HCPCS: 70553; A9577

== ENCOUNTER 2023-12-22 11:06 | Outpatient (CLI) | payer OTHER, SELFPAY ==
[2023-12-22 11:26] LABS: Hematocrit 41.7 % (37.0-47.0); Hemoglobin 13.9 g/dL (12.0-15.0); Mean Corpuscular HGB Conc 33.3 g/dl (32-36); Mean Corpuscular Hemoglobin 28.4 pg (26-34); Mean Corpuscular Volume 85.1 fl (80-100); Mean Platelet Volume 9.7 fl (7.4-10.4); Platelet Count Result 252 k/mm3 (150-375); Red Cell Distribution Width 13.9 % (11.5-14.5); White Blood Count 7.5 K/mm3 (4.5-10.0)
[2023-12-22 11:42] LABS: Alanine Aminotransferase 27 U/L (6-35); Albumin Level 4.5 g/dL (3.5-5.1); Alkaline Phosphatase 81 U/L (38-126); Anion Gap 5 mmol/L (4-12); Aspartate Amino Transferase 45 U/L (14-36); Bilirubin,Total 0.7 mg/dL (0.2-1.3); Blood Urea Nitrogen 20 mg/dL (7-17); CRP < 0.5 mg/dL (<1.0); Calcium 9.4 mg/dL (8.4-10.2); Carbon Dioxide 34 mmol/L (22-30); Chloride 100 mmol/L (98-107); Estimated Glomerular Filt Rate 59; Glucose 92 mg/dL (65-110); Potassium 4.2 mmol/L (3.4-5.0); Sodium 139 mmol/L (137-145)
[2023-12-22 12:34] LABS: Erythrocyte Sedimentation Rate 15 mm/hr (0-20)
== END 2023-12-22 11:07 | disposition home or self-care (01) ==
PROVIDERS: PCP Internal Medicine; Visit Provider Internal Medicine Gastroenterology
DX: K50.90 Crohn's disease, unspecified, without complications (principal)
CPT/HCPCS: 36415; 80053; 85027; 85652; 86140

== ENCOUNTER 2023-12-29 07:00 | Outpatient (CLI) | payer OTHER, SELFPAY ==
[2024-01-05 00:48] LABS: Calprotectin, Stool 3640 mcg/g
== END 2023-12-29 07:01 | disposition home or self-care (01) ==
PROVIDERS: PCP Internal Medicine; Visit Provider Internal Medicine Gastroenterology
DX: K50.90 Crohn's disease, unspecified, without complications (principal)
CPT/HCPCS: 83993

== ENCOUNTER 2024-02-03 11:27 | Outpatient (CLI) | payer OTHER, SELFPAY ==
--- NOTE | ~2024-02-03 | CT_ITS ---
EXAMINATION: CT cervical spine wo con DATE: 02/03/2024 11:52 INDICATION: Cervicalgia TECHNIQUE: Computed tomography (CT) of the cervical spine was performed without intravenous contrast. Automated exposure control and iterative reconstruction technique were employed. The dose-length pro duct was 469.79 mGy-cm. COMPARISON: None FINDINGS: Mild osteoarthritis at the atlantoaxial articulation. Straightening of the normal cervical lordosis. 1-2 mm retrolisthesis C5 on C6. There is mild associated disc height loss with severe right-sided and moderate left-sided uncovertebral osteoarthritis and posterior disc osteophyte complex at this level contributing to mild central canal and mild bilateral neural foraminal stenosis at C5-C6. Vertebral body heights and remaining disc heights are normal. No acute fracture. Moderate bilateral facet osteo arthritis at C7-T1. Multilevel mild facet osteoarthritis throughout the remainder of the cervical spi ne. No other central canal or neural foraminal stenosis. Cervical soft tissues are unremarkable. Mast oid air cells, middle ear cavities and visualized portions of the sphenoid sinuses are clear. Visuali zed upper lungs are clear. IMPRESSION: 1. Mild cervical spondylosis most prominent at C5-C6. Reviewed, dictated and finalized at location B. 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
== END 2024-02-03 11:28 | disposition home or self-care (01) ==
LOC: ANHIMG 11:31
PROVIDERS: PCP Internal Medicine; Visit Provider Internal Medicine
DX: M43.06 Spondylolysis, lumbar region (principal); G43.909 Migraine, unspecified, not intractable, without status migrainosus
CPT/HCPCS: 72125

== ENCOUNTER 2024-05-23 13:51 | Outpatient (CLI) | payer OTHER, SELFPAY ==
[2024-05-23 14:18] LABS: Basophils Percent Auto 0.4 % (0.2-1.2); Eosinophils Absolute Auto 0.1 K/mm3 (0-0.3); Eosinophils Percent Auto 0.9 % (0-4.4); Hematocrit 40.4 % (37.0-47.0); Hemoglobin 13.7 g/dL (12.0-15.0); Immature Granulocyte Absolute 0.02 K/mm3 (0.00-0.031); Immature Granulocyte Percent A 0.3 % (0-0.5); Lymphocytes Absolute Auto 1.38 K/mm3 (0.9-3.2); Lymphocytes Percent Auto 19.9 % (18.3-44.2); Mean Corpuscular HGB Conc 33.9 g/dl (32-36); Mean Corpuscular Volume 91.4 fl (80-100); Mean Platelet Volume 9.6 fl (7.4-10.4); Monocytes Absolute Auto 0.4 K/mm3 (0.1-0.6); Monocytes Percent Auto 5.6 % (2.6-8.5); Neutrophils Percent Auto 72.9 % (45.5-73.1); Platelet Count Result 298 k/mm3 (150-375); Red Blood Count 4.42 M/mm3 (4.2-5.4); White Blood Count 6.9 K/mm3 (4.5-10.0)
[2024-05-23 14:50] LABS: Vitamin D 25 Hydroxy 24.6 ng/mL
[2024-05-23 15:29] LABS: Iron 55 ug/dL (37-170)
--- OUTSIDE RECORDS SUMMARY | 2024-05-23 15:32 | XMS_ITS | Encounter Summary ---
Author Organization [facility] Address [address] [place] [address] Care Team Providers Care Entrepreneur Name Role Phone Tato Dias MD Primary Care Provider [phone] Molly Leonard MD Primary Care Provider [phone] Encounter Details Date Type Department Care Team (Late st Contact Info) Description 09/10/2016 Abstract [facility] CONVERSION [address] [place] [id number] , Generic Conversion, Social History Tobacco Use Types Packs/Day Years Used Date Smoking Tobacco: Never Assessed Comments Unknown Sex and Gender Information Value Date Recorded Sex Assigned at Female 06/22/2018 4:25 PM CDT Legal 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 Gender Identity Female 06/22/2018 4:25 PM CDT Sexual Orientation Straight 06/22/2018 4: 25 PM CDT documented as of this encounter Plan of Treatment Not on file documented as of this encounter Visit Diagnoses Not on filedocumented in this encounter Additional Health Concerns Infection Onset Date Last Indicated Resolved Time COVID-19 Rule Out 11/27/2019 11/27/2019 11/29/2019 4:51 PM CDT COVID-19 Rule Out 06/10/2020 06/10/2020 06/10/2020 1:52 PM CDT COVID-19 Rule Out 06/10/2020 06/10/2020 06/11/2020 5:01 PM CDT COVID-19 Rule Out 12/17/2020 12/17/2020 12/24/2020 12:34 AM CDT documented as of this encounter Care Teams Entrepreneur Relationship Specialty Start Date End Date Tato Dias MD PCP - General INTERNAL MEDICINE 04/12/18 06/04/21 [place] [address] [facility] [address] [place] [address] PCP - General FAMILY PRACTICE 06/05/21 documented as of this encounter
--- OUTSIDE RECORDS SUMMARY | 2024-05-23 15:32 | XMS_ITS | Encounter Summary ---
Author Organization [facility] Address [address] [place] [address] Care Team Providers Care Lining Marker Name Role Phone Tato Dias MD Primary Care Provider [phone] Molly Leonard MD Primary Care Provider [phone] Encounter Details Date Type Department Care Team (Late Contact Info) Description 09/04/2016 Abstract [facility] CONVERSION [address] [place] [address] , Generic Conversion, Social History Tobacco Use Types Packs/Day Years Used Date Smoking Tobacco: Never Assessed Comments Unknown Sex and Gender Information Value Date Recorded Sex Assigned at Female 06/22/2018 4:25 PM CDT 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
--- OUTSIDE RECORDS SUMMARY | 2024-05-23 15:33 | XMS_ITS | Encounter Summary ---
Author Organization [facility] Address [address] [place] [address] Care Team Providers Care Dry Ice Maker Name Role Phone Tato Dias MD Primary Care Provider [phone] Molly Leonard MD Primary Care Provider [phone] Encounter Details Date Type Department Care Team (Late Contact Info) Description 06/01/2021 MyChart Message Enc [facility] Family & Internal Medicine [address] [address] Tato Dias MD [address] [facility] [address] [address] Appointment on 06/15/21 - Dr Dias Social History Tobacco Use Types Packs/Day Years Used Date Smoking Tobacco: Every Day Cigarettes 0.3 30 Smokeless Tobacco: Never Comments:4 a day Alcohol Use Standard Drinks/Week Comments Yes 0 (1 standard drink = 0.6 oz pur e alcohol) social AUDIT-C Answer Date Recorded Q1: How often do you have a drink containing alc ohol? Monthly or less 02/28/2020 Q2: How many drinks containi ng alcohol do you have on a typical day when you are drinking? 1 or 2 02/28/2020 Frequency of Binge Drinking Not on file 02/11 PHQ-2 Answer Date Recorded PHQ-2 Score - If the patient scores above 3, please move on to questions 3-9 6 03/17/2021 Education Answer Date Recorded What is the highest level of school you have completed or the highest degree you have received? 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 [place] [address] PCP - General FAMILY PRACTICE 06/05/21 documented as of this encounter
--- OUTSIDE RECORDS SUMMARY | 2024-05-23 15:33 | XMS_ITS | Encounter Summary ---
Author Organization [facility] Address [address] [place] [address] Care Team Providers Care Assistant Wrestling Coach Name Role Phone Tato Dias MD Primary Care Provider [phone] Molly Leonard MD Primary Care Provider [phone] Encounter Details Date Type Department Care Team (Latest Contact Info) Description 11/16/2017 Abstract [facility] , Salena Weinberg MD Social History Tobacco Use Types Packs/Day Years Used Date Smoking Tobacco: Never Assessed Comments Unknown Sex and Gender Information Value Date Recorded Sex Assigned at Female 06/22/2018 4:25 PM CDT 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 [address] [place] [address] PCP - General FAMILY PRACTICE 06/05/21 documented as of this encounter
--- OUTSIDE RECORDS SUMMARY | 2024-05-23 15:33 | XMS_ITS | Patient Health Summary ---
Author Organization [facility] Address [address] [place] [address] Care Team Providers Care Registered Appraiser Name Role Phone Tato Dias MD Primary Care Provider [phone] Pedro Tse MD Unavailable [phone] [facility],non-owned Affiliates and Associated Physician Practices is amultiple site organization consisting of ambulatory clinics and hospital sitesin [place], [place], [place] and [place]. This disclosure is being madepursuant to the Care Everywhere program and may not contain all information available regarding this patient. Last updated 17.[facility] Allergies * Sulfa Drugs * Sulfa Drugs(GI Discomfort) -Medium Criticality Medications * Be aware that medications may not be up to date on this document. Alwaysverify current medications with the patient. * Jzv-Gge-VO-Fish Oil ([facility] GUMMY) 0.4-113.5 MG CHEW Take 2 Each by mouth once daily * metFORMIN (GLUCOPHAGE) 500 MG tablet Take 500 mg by mouth 2 times daily with morning and evening meal * labetalol (NORMODYNE; TRANDATE) 200 MG tablet Take 200 mg by mouth 2 times daily * acetaminophen (TYLENOL) 500 MG tablet Take 500 mg by mouth every 4 hours as needed for Headache Maximum allowable Acetaminophen amount = 4 Grams (4000 mg) / 24 hours. * insulin lispro (HUMALOG) 100 UNIT/ML vial Inject 30 Units subcutaneously 2 times daily,before breakfast and supper 14 units in am and 16 units dinner * RaNITidine HCl (ZANTAC 75 PO) Take 75 mg by mouth * insulin glargine (LANTUS) vial Inject 38 Units subcutaneously at bedtime 26 units HS and 12 units am * aspirin EC (ECOTRIN) 81 MG tablet Take 81 mg by mouth once daily * progesterone 200 mg SUPP(Started 06/09/2016) Insert into the vagina at bedtime 1 refill remaining * FLUoxetine (PROZAC) 20 MG capsule Take 20 mg by mouth once daily * ferrous sulfate 325 (65 FE) MG tablet Take 325 mg by mouth once daily * lisinopril (PRINIVIL; ZESTRIL) 20 MG tablet Take 20 mg by mouth once daily * escitalopram (LEXAPRO) 20 MG tablet Take 20 mg by mouth once daily * traMADol (ULTRAM) 50 MG tablet Take 50 mg by mouth every 6 hours as needed * cyclobenzaprine (FLEXERIL) 5 MG tablet Take 5 mg by mouth 3 times daily as needed * Pvynqfgzhr-ROVQ-Mvytyrji 50-325-40 MG Active Problems Problem Noted Date Diagnosed Date Supervision of high risk in [facility] 03/12/2016 Diabetes mellitus complicating , antepa rtum 03/12/2016 Chronic hypertension affecting 016 Obesity affecting 03/12/2016 History of delivery, currently 03/12/2016 AMA (advanced maternal age) multigravida 35+ Social History Tobacco Use Types Packs/Day Years Used Date Smoking Tobacco: Every Day Cigarettes 1 25 Smokeless Tobacco: Never Tobacco Cessation:Ready to Q uit: Yes; Counseling Given: No Alcohol Use Standard Drinks/Week Comments Yes 0 (1 standard drink = 0.6 oz pur e alcohol) [facility] Sex and Gender Information Value Date Recorded Sex Assigned at Not on file Gender Identity Not on file Sexual Orientation Not on file Last Filed Vital Signs Vital Sign Reading Time Taken Comments Blood Pressure 110/60 11/06/2023 2:00 AM CDT Pulse 101 11/05/2023 8:46 PM CDT Temperature 37.2 C (99 F) 11/05/2023 8:46 PM CDT Respiratory Rate 26 11/05/2023 8:46 PM CDT Oxygen Saturation 100% 11/06/2023 2:00 AM CDT Inhaled Oxygen Concentration - - Weight 76.2 kg (168 lb) 08/28/2018 10:52 AM CDT Height 176.5 cm (5' 9.5 ) 08/28/2018 10:52 AM CD T Body Mass Index 24.45 08/28/2018 10:52 AM CDT Procedures * CARDIAC EKG ORDER(Performed 11/07/2023) * ALCOHOL ETHYL BLOOD(Performed 11/06/2023) * TROPONIN-I HIGH SENSITIVE REFLEX 1HOUR(Performed 11/06/2023) * URINALYSIS REFLEX TO MICROSCOPIC NO CULTURE(Performed 11/06/2023) * URINE DRUG SCREEN IMMUNOASSAY(Performed 11/06/2023) * CT HEAD WO CONTRAST(Performed 11/05/2023) Performed for Altered mental status, unspecified altered mental status type * HCG BETA BLOOD QUANTITATIVE(Performed 11/05/2023) * TROPONIN-I HIGH SENSITIVE BASELINE + 1HR(Performed 11/05/2023) * SALICYLATE LEVEL BLOOD(Performed 11/05/2023) * TSH REFLEX FREE T4(Performed 11/05/2023) * LIPASE BLOOD(Performed 11/05/2023) * ACETAMINOPHEN LEVEL(Performed 11/05/2023) * COMPREHENSIVE METABOLIC PANEL(Performed 11/05/2023) * CBC W AUTO DIFFERENTIAL(Performed 11/05/2023) * EKG 12-LEAD(Performed 11/05/2023) Performed for Altered mental status, unspecified altered mental status type * XR CHEST 1VW PORTABLE(Performed 11/05/2023) Performed for Altered mental status, unspecified altered mental status type * XR LUMBAR SPINE 4VW OR MORE(Performed 08/28/2018) Performed for Back pain, unspecified back location, unspecified back pain laterality, unspecified chronicity * NON-STRESS TEST(Performed 09/15/2016) Performed for Supervision of high risk in first trimester ([facility]), Diabetes mellitus complicating , antepartum, third trimester ([facility]), Chronic hypertension affecting ([facility]) * BIOPHYSICAL PROFILE W NST(Performed 09/08/2016) Performed for AMA (advanced maternal age) multigravida 35+, second trimester ([facility]), Chronic hypertension affecting (HCC), Diabetes mellitus complicating , antepartum, third trimester (HCC) * NON-STRESS TEST(Performed 09/01/2016) Performed for Supervision of high risk in first trimester (HCC), Diabetes mellitus complicating , antepartum, third trimester (HCC), Chronic hypertension affecting (HCC) * ECHO CONSULT - (Performed 08/30/2016) Performed for Diabetes mellitus complicating , antepartum, first trimester (HCC), Supervision of high risk in first trimester (HCC) * BIOPHYSICAL PROFILE W NST(Performed 08/17/2016) Performed for AMA (advanced maternal age) multigravida 35+, second trimester (HCC), Chronic hypertension affecting (HCC), Diabetes mellitus complicating , antepartum, third trimester (HCC) * SONOGRAM - COMPLETE(Performed 2016) Performed for Supervision of high risk in first trimester (HCC), Diabetes mellitus complicating , antepartum, second trimester (HCC), Chronic hypertension affecting (HCC), Obesity affecting (HCC), History of delivery, currently ([facility]) * SONOGRAM - TRANSVAGINAL(Performed 07/28/2016) Performed for Supervision of high risk in first trimester (HCC), Diabetes mellitus complicating , antepartum, second trimester (HCC), AMA (advanced maternal age) multigravida 35+, second trimester ([facility]) * SONOGRAM - TRANSVAGINAL(Performed 07/21/2016) Performed for Supervision of high risk in first trimester (HCC), Diabetes mellitus complicating , antepartum, second trimester (HCC), AMA (advanced maternal age) multigravida 35+, second trimester (HCC) * SONOGRAM - TRANSVAGINAL(Performed 07/14/2016) Performed for Cervical shortening affecting (HCC), Supervision of high risk in first trimester ([facility]) * SONOGRAM - TRANSVAGINAL(Performed 07/07/2016) Performed for Short cervical length during , second trimester (HCC), Supervision of high risk in first trimester (HCC) * SONOGRAM - TRANSVAGINAL(Performed 06/30/2016) Performed for Short cervical length during , second trimester (HCC), Supervision of high risk in first trimester (HCC) * SONOGRAM - COMPLETE(Performed 06/23/2016) Performed for Supervision of high risk in first trimester ([facility]), Diabetes mellitus complicating , antepartum, second trimester (HCC), Chronic hypertension affecting (HCC), Obesity affecting ([facility]), History of delivery, currently ([facility]) * SONOGRAM - TRANSVAGINAL(Performed 06/16/2016) Performed for Short cervical length during , second trimester ([facility]), Supervision of high risk in first trimester ([facility]) * GLUCOSE - POINT OF CARE(Performed 06/09/2016) * URINALYSIS REFLEX MICROSCOPIC REFLEX CULTURE(Performed 06/09/2016) Performed for Supervision of high risk in first trimester ([facility]) * SONOGRAM - TRANSVAGINAL(Performed 06/09/2016) Performed for Supervision of high risk in first trimester ([facility]) * SONOGRAM - COMPLETE(Performed 05/26/2016) Performed for Supervision of high risk in first trimester ([facility]), Diabetes mellitus complicating , antepartum, second trimester ([facility]), Chronic hypertension affecting ([facility]), Obesity affecting ([facility]), History of delivery, currently ([facility]) * SONOGRAM - COMPLETE(Performed 04/28/2016) Performed for Supervision of high risk in first trimester ([facility]), Diabetes mellitus complicating , antepartum, second trimester ([facility]), Chronic hypertension affecting ([facility]), Obesity affecting ([facility]), History of delivery, currently ([facility]) * SONOGRAM - COMPLETE(Performed 03/17/2016) Performed for AMA (advanced maternal age) multigravida 35+, first trimester ([facility]), Chronic hypertension affecting ([facility]), Diabetes mellitus complicating , antepartum, first trimester ([facility]), History of delivery, currently ([facility]), Obesity affecting ([facility]), S upervision of high risk in first trimester ([facility]) * LS RATIO AMNIOTIC FLUID(Performed 12/02/2008) * LUNG MATURITY(Performed 12/02/2008) Results * CARDIAC EKG ORDER (11/07/2023 1:36 PM CDT) Narrative 11/07/2023 1:36 PM CDT Ordered by an unspecified provider. Scanned Document CARDIAC SERVICES ORD ERABLES * TROPONIN-I HIGH SENSITIVE REFLEX 1HOUR (11/06/2023 1:55 AM CDT) Troponin I High Sensitive <3 <=14 ng/L 11/06/2023 2:47 AM CDT [facility] Delta Troponin I HS 11/06/2023 2:47 AM CDT [facility] Comment:Delta value intentio jt not calculated. Baseline to 1 hour specimen collection interval exceeded. Blood BLOOD SPECIMEN / Unknown Venipuncture / Unknown 11/06/2023 1:55 AM CDT 11/06/2023 2:10 AM CDT Tato Daniels MD LAB - CHEMISTRY SEVERIAN[facility] CARRASQUILLO Performing Organization Address [facility]/ZIP Co de Phone Number [address] [address], [employer] [phone] * (ABNORMAL) ALCOHOL ETHYL BLOOD (11/06/2023 1:55 AM CDT) Ethanol (mg/dL) 25(H) <10 mg/dL 2:38 AM CDT [facility] Ethanol Calculated (g/dL) 0.025(H) <=0.010 g/dL 11/06/2023 2:38 AM CDT [facility] Blood BLOOD SPECIMEN / Unknown Venipuncture / Unknown 11/06/2023 1:55 AM CDT 11/06/2023 2:10 AM CDT Narrative [facility] - 11/06/2023 2:38 AM CDT Ethanol Interp <10: None Detected. Depression of SALES REPRESENT[employer]IVE [employer]: >100 mg/dl Potentially Critical: >250 mg/dl Potentially Fatal >400 mg/dl Ethanol in the patient's blood will contribute to the osmolar gap. Ethanol's contribution to the osmolar gap can be estimated by dividing the concentration of ethanol in mg/dL by 4.6. This test is for clinical use only and does not equal a NEVILLE for legal purposes. Tiffanie Qiu MD LAB - CHEMISTRY [facility] Performing Organization Address City/[facility]/ZIP Co de Phone Number [address] [address], [employer] [phone] * (ABNORMAL) URINALYSIS REFLEX TO MICROSCOPIC NO CULTURE (11/06/2023 12:06 AM [facility]) Color UA Yellow Straw, Yellow 11/06/2023 12:31 AM [facility] Clarity UA Clear Clear 11/06/2023 12:31 AM [facility] Specific [place] UA 1.009 1.005 - 1.030 11/06/2023 12:31 AM [facility] pH UA 6.0 5.0 - 8.0 pH 11/06/2023 12:31 AM [facility] Protein UA Negative Negative 11/06/2023 12:31 AM [facility] Glucose UA Negative Negative 11/06/2023 12:31 AM [facility] Ketone UA Negative Negative 11/06/2023 12:31 AM [facility] Bilirubin UA Negative Negative 11/06/2023 12:31 AM [facility] Blood UA 1+(A) Negative 11/06/2023 12:31 AM [facility] Nitrite UA Negative Negative 11/06/2023 12:31 AM [facility] Leukocyte Esterase Negative Negative 11/06/2023 12:31 AM [facility] Urobilinogen UA Negative Negative mg/dL 11/06/2023 12:31 AM [facility] RBC UA 0-2 None Seen, 0-2, 3-5 /HPF 11/06/2023 12:31 AM [facility] WBC UA 0-5 None Seen, 0-5 /HPF 11/06/2023 12:31 AM [facility] Bacteria UA Trace(A) None /HPF 11/06/2023 12:31 AM [facility] Squamous Epithelial Cells UA 0-2 None Seen, 0-2, 3-5 /HPF 11/06/2023 12:31 AM [facility] Mucus UA 1+ /LPF 11/06/2023 12:31 AM [facility] Hyaline Casts UA 0-2 None Seen, 0-2 /LPF 11/06/2023 12:31 AM [facility] Urine URINE SPECIMEN OBTAINED BY CLEAN CATCH PROCEDURE / Unknown Collection / Unknown 11/06/2023 12:06 AM CDT 11/06/2023 12:13 AM CDT [facility] - 11/06/2023 12:31 AM CDT Tato Daniels MD LAB - URINALYSIS ORD ERABLES [facility] [address] [place] [address], [facility] [phone] * (ABNORMAL) URINE DRUG SCREEN IMMUNOASSAY (11/06/2023 12:06 AM CDT) [facility] Amphetamines Screen Urine Negative Negative : < 1000 ng/mL 11/06/2023 12:45 AM [facility] Barbiturates Screen Urine Negative Negative : < 200 ng/mL 11/06/2023 12:45 AM [facility] Benzodiazepine Screen Urine Negative Negative : < 200 ng/mL 11/06/2023 12:45 AM [facility] Opiates Urine Negative Negative : < 300 ng/mL 11/06/2023 12:45 AM [facility] Cocaine Metabolites Urine Negative Negative : < 300 ng/mL 11/06/2023 12:45 AM [facility] Phencyclidine Screen Urine Negative Negative : < 25 ng/ml 11/06/2023 12:45 AM [facility] Cannabinoids Screen Urine Positive(A) Negative : <50 ng/mL 11/06/2023 12:45 AM [facility] Comment:Positive urine canna binoids (THC) screening results should be confirmed by another generally accepted non-immunological method such as gas chromatography or mass spectrometry. Methadone Screen Urine Negative Negative : < 300 ng/mL 11/06/2023 12:45 AM [facility] Fentanyl Screen Urine Negative Negative : <1.5 ng/mL 11/06/2023 12:45 AM [facility] Urine URINE / Unknown Collection / Unknown 11/06/2023 12:06 AM CDT 11/06/2023 12:13 AM CDT Narrative [facility] - 11/06/2023 12:45 AM CDT The Urine Toxicology Screening Panel does not screen for Propoxyphene, Meprobamate, Carisoprodol, Trazodone, nuxh-cqx-nzpplhr medications and/or volatiles (Acetone, Isopropanol, Methanol or Ethylene Glycol). Ethanol, Salicylate, Acetaminophen, Tricyclic Antidepressants and several therapeutic drugs may be individually assayed in serum or plasma specimen. Toxicology testing by the [facility] is an aid to medical diagnosis and treatment of patients. No documented chain of custody was maintained. Results are intended to be used for clinical purposes only. Tato Daniels MD LAB - URINE CHEMISTR Y ORDERABLES [id number] [place] [address], [facility] [phone] * CT HEAD NON CONTRAST (11/05/2023 9:49 PM CDT) Anatomical Region Laterality Modality Head Computed Tomogra phy 11/05/2023 9:50 PM CDT Impressions 11/05/2023 10:52 PM CDT IMPRESSION: No acute intracranial abnormality. The report is dictated by Demetra Swenson MD (commercial lending vice president) I, Samanta Alvarado MD, PhD have personally reviewed and interpreted this examination/study. > Interpreting Provider: Samanta Alvarado MD, PhD on 11/05/2023 10:52 PM Narrative 11/05/2023 10:52 PM CDT EXAM: CT HEAD WO CONTRAST, DATE/TIME OF EXAM: 11/05/2023 9:49 PM, LOCATION: [facility] HISTORY: R41.82: Altered mental status, unspecified altered mental status type ADDITIONAL CLINICAL INFORMATION: Ordering Provider Reason For Exam: AMS. EXAMINATION: CT scan of the head without intravenous contrast TECHNIQUE: CT of the head was performed without intravenous contrast according to standard protocol. CT dose reduction technique was used, including Automated Exposure Control. COMPARISON: No prior similar studies are available for comparison. FINDINGS: BRAIN PARENCHYMA: No acute hemorrhage, large vascular territory infarct, or mass effect. White matter is within normal limits for age. Incidentally noted low-lying cerebellar tonsils that project approximately 4 mm below the foramen magnum without evidence of a Chiari malformation. VENTRICLES/EXTRA-AXIAL SPACES: No ventriculomegaly or extra-axial collection. Basal cisterns are patent. EXTRACRANIAL STRUCTURES: No acute or suspicious osseous abnormality. Normal soft tissues. Mild mucosal thickening of the bilateral ethmoid air cells and small liquid levels layering within the right greater than left maxillary sinuses and left sphenoid sinus, which is suggestive of acute sinusitis. Bilateral middle and inferior nasal turbinate hypertrophy with partial opacification of the nasal cavity with bubbly opacities. Rightward deviated nasal septum with small right-sided spurs. Mastoid air cells are clear. Procedure Note Samanta Alvarado MD - 11/05/2023 EXAM: CT HEAD WO CONTRAST, DATE/TIME OF EXAM: 11/05/2023 9:49 PM, LOCATION: [facility] HISTORY: R41.82: Altered mental status, unspecified altered mentalstatus type ADDITIONAL CLINICAL INFORMATION: Ordering Provider Reason For Exam: AMS. EXAMINATION: CT scan of the head without intravenous contrast TECHNIQUE: CT of the head was performed without intravenous contrast according to standard protocol. CT dose reduction technique was used, including Automated Exposure Control. COMPARISON: No prior similar studies are available for comparison. FINDINGS: BRAIN PARENCHYMA: No acute hemorrhage, large vascular territory infarct,or mass effect. White matter is within normal limits for age. Incidentally noted low-lying cerebellar tonsils that project approximately 4 mm below the foramen magnum without evidence of a Chiari malformation. VENTRICLES/EXTRA-AXIAL SPACES: No ventriculomegaly or extra-axial collection. Basal cisterns are patent. EXTRACRANIAL STRUCTURES: No acute or suspicious osseous abnormality.Normal soft tissues. Mild mucosal thickening of the bilateral ethmoid air cells and small liquid levels layering within the right greater than left maxillary sinuses and left sphenoid sinus, which is suggestive of acute sinusitis. Bilateral middle and inferior nasal turbinate hypertrophywith partial opacification of the nasal cavity with bubbly opacities.Rightward deviated nasal septum with small right-sided spurs. Mastoid air cellsare clear. IMPRESSION: No acute intracranial abnormality. The report is dictated by Demetra Swenson MD (commercial lending vice president) ISamanta MD, PhD have personally reviewed and interpreted this examination/study. > Interpreting Provider: Samanta Alvarado MD, PhD on 11/05/2023 10:52 PM T[address] MD CT ORDERABLES * TROPONIN-I HIGH SENSITIVE BASELINE + 1HR (11/05/2023 9:40 PM CDT) [facility] Troponin I High Sensitive <3 <=14 ng/L 11/05/2023 10:18 PM CDT [facility] Blood BLOOD SPECIMEN / Unknown Venipuncture / Unknown 11/05/2023 9:40 PM CDT 11/05/2023 9:41 PM CDT Tato Daniels MD LAB - CHEMISTRY [facility]IAN[facility] CARRASQUILLO [address] [address], [facility] [phone] * TSH REFLEX FREE T4 (11/05/2023 9:40 PM CDT) [facility] TSH 1.613 0.350 - 4.940 uIU/mL 11/05/2023 10:30 PM CDT [facility] Blood BLOOD SPECIMEN / Unknown Venipuncture / Unknown 11/05/2023 9:40 PM CDT 11/05/2023 9:41 PM CDT Tato Daniels MD LAB - CHEMISTRY SEVERIAN[facility] CARRASQUILLO [address] [address], [facility] [phone] * (ABNORMAL) CBC W AUTO DIFFERENTIAL (11/05/2023 9:40 PM CDT) [facility] WBC 8.8 4.0 - 10.7 x10E9/L 11/05/2023 9:45 PM CDT [facility] RBC Count 4.82 3.90 - 5.20 x10E12/L 11/05/2023 9:45 PM CDT [facility] Hemoglobin 12.7 11.9 - 15.8 g/dL 11/05/2023 9:45 PM CDT [facility] Hematocrit 38.0 34.8 - 46.1 % 11/05/2023 9:45 PM [facility] MCV 78.8(L) 80.0 - 98.0 fL 11/05/2023 9:45 PM [facility] MCH 26.3(L) 26.7 - 33.6 pg 11/05/2023 9:45 PM [facility] MCHC 33.4 31.7 - 36.3 g/dL 11/05/2023 9:45 PM [facility] RDW-CV 14.5 11.3 - 14.8 % 11/05/2023 9:45 PM [facility] Platelet Count 275 150 - 420 x10E9/L 11/05/2023 9:45 PM [facility] MPV 9.6 7.8 - 11.4 fL 11/05/2023 9:45 PM [facility] Neutrophil % 81.5(H) 41.0 - 74.0 % 11/05/2023 9:45 PM [facility] Lymphocyte % 14.3(L) 17.0 - 47.0 % 11/05/2023 9:45 PM [facility] Monocyte % 2.8(L) 3.0 - 11.0 % 11/05/2023 9:45 PM [facility] Eosinophil % 0.3 0.0 - 7.0 % 11/05/2023 9:45 PM [facility] Basophil % 0.5 0.0 - 1.6 % 11/05/2023 9:45 PM [facility] Immature Granulocytes % 0.6 0.0 - 1.0 % 11/05/2023 9:45 PM [facility] Neutrophil Absolute 7.17 1.60 - 7.50 x10E9/L 11/05/2023 9:45 PM [facility] Lymphocyte Absolute 1.26 1.00 - 4.40 x10E9/L 11/05/2023 9:45 PM [facility] Monocyte Absolute 0.25 0.15 - 1.00 x10E9/L 11/05/2023 9:45 PM [facility] Eosinophil Absolute 0.03 0.00 - 0.60 x10E9/L 11/05/2023 9:45 PM [facility] Basophil Absolute 0.04 0.00 - 0.13 x10E9/L 11/05/2023 9:45 PM [facility] Blood BLOOD SPECIMEN / Unknown Venipuncture / Unknown 11/05/2023 9:40 PM CDT 11/05/2023 9:42 PM CDT Tato Daniels MD LAB - HEMATOLOGY ORD ERABLES [facility] [address] [place] [address], [facility] [phone] * (ABNORMAL) COMPREHENSIVE METABOLIC PANEL (11/05/2023 9:40 PM CDT) BUN 15 7 - 26 mg/dL 11/05/2023 10:14 PM [facility] Creatinine 0.99(H) 0.56 - 0.96 mg/dL 11/05/2023 10:14 PM [facility] Sodium 142 136 - 145 mmol/L 11/05/2023 10:14 PM [facility] Potassium 3.7 3.5 - 4.5 mmol/L 11/05/2023 10:14 PM [facility] Chloride 111(H) 98 - 107 mmol/L 11/05/2023 10:14 PM [facility] CO2 22 22 - 29 mmol/L 11/05/2023 10:14 PM [facility] Glucose 125(H) 70 - 115 mg/dL 11/05/2023 10:14 PM [facility] Calcium 9.2 8.4 - 10.2 mg/dL 11/05/2023 10:14 PM [facility] Protein Total 6.9 6.0 - 8.3 g/dL 11/05/2023 10:14 PM [facility] Albumin 3.7 3.4 - 5.0 g/dL 11/05/2023 10:14 PM [facility] Bilirubin Total 0.3 0.2 - 1.2 mg/dL 11/05/2023 10:14 PM [facility] Alkaline Phosphatase 87 40 - 150 U/L 11/05/2023 10:14 PM CDT [facility] ALT 16 5 - 55 U/L 11/05/2023 10:14 PM [facility] AST 23 5 - 34 U/L 11/05/2023 10:14 PM [facility] Anion Gap 9 6 - 16 11/05/2023 10:14 PM [facility] BUN/Creatinine Ratio 15 7 - 23 11/05/2023 10:14 PM [facility] Osmolality Calculated 296(H) 275 - 295 mOsm/kg 11/05/2023 10:14 PM [facility] Albumin/Globulin Ratio 1.2 1.1 - 2.3 11/05/2023 10:14 PM [facility] eGFR by CKD-EPI 70(L) >=90 mL/min/1.7 3 m2 11/05/2023 10:14 PM [facility] Blood BLOOD SPECIMEN / Unknown Venipuncture / Unknown 11/05/2023 9:40 PM CDT 11/05/2023 9:41 PM CDT Tato Daniels MD LAB - CHEMISTRY SEVERIANO CARRASQUILLO [facility] [address] [place] [address], [facility] [phone] * HCG BETA BLOOD QUANTITATIVE (11/05/2023 9:40 PM CDT) Beta-hCG Total Quantitative 3 mIU/mL 11/05/2023 10:23 PM CDT [facility] Comment: HCG Numeric Result Interpretation: Non- Females: < 5 mIU/mL Post-Menopausal Females: < 7 mIU/mL This assay is cleared for use in the early detection of only. It is not approved for any other uses such as tumor marker screening, tumor marker monitoring, etc. and should not be used for any other purposes. Blood BLOOD SPECIMEN / Unknown Venipuncture / Unknown 11/05/2023 9:40 PM CDT 11/05/2023 9:41 PM CDT Tato Daniels MD LAB - CHEMISTRY SEVERIANO CARRASQUILLO Performing Organization Address [facility]/ZIP Co de Phone Number [address] [address], [facility] [phone] * LIPASE BLOOD (11/05/2023 9:40 PM CDT) Lipase 14 8 - 78 U/L 11/05/2023 10:14 PM CDT [facility] Blood BLOOD SPECIMEN / Unknown Venipuncture / Unknown 11/05/2023 9:40 PM CDT 11/05/2023 9:41 PM CDT [facility] - 11/05/2023 10:14 PM CDT Lipase results from the Satoris Alinity analyzer may not be comparable with other methodologies. Tato Daniels MD LAB - CHEMISTRY SEVERIANO CARRASQUILLO Performing Organization Address [facility] Co de Phone Number [address] [address], [facility] [phone] * (ABNORMAL) SALICYLATE LEVEL BLOOD (11/05/2023 9:40 PM CDT) Salicylate <5(L) 15 - 30 mg/dL 11/05/2023 10:13 PM CDT [facility] Blood BLOOD SPECIMEN / Unknown Venipuncture / Unknown 11/05/2023 9:40 PM CDT 11/05/2023 9:41 PM CDT Narrative [facility] - 11/05/2023 10:13 PM CDT This test is not intended for use with low-dose aspirin therapy. Most patients on low-dose aspirin for cardiovascular prophylaxis will have serum concentrations near or below the lower limit of the analytical range. Tato Daniels MD LAB - CHEMISTRY SEVERIANO CARRASQUILLO Performing Organization Address [facility]/ZIP Co de Phone Number [address] [address], [facility] [phone] * ACETAMINOPHEN LEVEL (11/05/2023 9:40 PM CDT) Acetaminophen <3.0 <3.0 ug/mL 11/05/2023 10:14 PM CDT [facility] Blood BLOOD SPECIMEN / Unknown Venipuncture / Unknown 11/05/2023 9:40 PM CDT 11/05/2023 9:41 PM CDT Narrative [facility] - 11/05/2023 10:14 PM CDT Acetaminophen Toxicity Levels (Hours Post Ingestion): >200 ug/mL at 4 hours >100 ug/mL at 8 hours >50 ug/mL at 12 hours For acute ingestion, please refer to Acetaminophen nomogram to determine the risk of toxicity based on time since ingestion and acetaminophen level (see link provided). Note the nomogram disclaimer. WARNING: Assessing the potential toxicity of an acetaminophen level on a standard risk nomogram must take into consideration many factors including any uncertainty of the time since ingestion or the possibility of other medications that may alter the peak level. Contact the [facility] at or reserved for healthcare professionals to assist you in evaluating potentially toxic acetaminophen levels. Tato Daniels MD LAB - CHEMISTRY SEVERIANO [facility] Organization Address City/State/ZIP Co de Phone Number [facility] [address] [place] [address], [facility] [phone] * EKG 12-LEAD (11/05/2023 9:27 PM CDT) [facility] Ventricular Rate 89 BPM SL MUSE Atrial Rate 89 BPM [facility] MUSE P-R Interval 158 ms [facility] MUSE QRS Duration ms 76 ms [facility] MUSE Q-T Interval ms 380 ms [facility] MUSE QTC Calculation (Bezet) 462 ms [facility] MUSE Calculated P [place] 45 degrees [facility] MUSE Calculated R [place] 66 degrees [facility] MUSE Calculated T [place] 77 degrees [facility] MUSE Interpretation EKG NORMAL SINUS RHYTHM NONSPECIFIC ST ABNORMALITY ABNORMAL ECG NO PREVIOUS ECGS AVAILABLE Confirmed by MD ARIK, JENNI ([id number]) on 11/06/2023 12:36:40 PM [facility] MUSE 11/05/2023 9:27 PM CDT 11/06/2023 12:36 PM CDT Tato Daniels MD ECG ORDERABLES [facility] MUSE * XR CHEST 1VW PORTABLE (11/05/2023 8:53 PM CDT) Anatomical Region Laterality Modality Chest Radiographic Carol ging 11/05/2023 10:2 1 PM CDT Narrative 11/06/2023 12:40 PM CDT PROCEDURE: XR CHEST 1VW PORTABLE, DATE/TIME OF EXAM: 11/05/2023 8:53 PM, LOCATION [facility] INDICATION: R41.82: Altered mental status, unspecified altered mental status type ADDITIONAL CLINICAL INFORMATION: Ordering Provider Reason For Exam: AMS Technologist Note: Additional: COMPARISON: None. FINDINGS/IMPRESSION: No focal consolidation, pneumothorax, or pleural effusion. The cardiomediastinal silhouette is normal. No displaced fractures identified. Report dictated by Demetra Swenson Dr, MD (commercial lending vice president). Tato Ortega DO have personally reviewed and interpreted this examination/study. > Interpreting Provider: Tato Keane DO on 11/06/2023 12:40 PM Procedure Note Tato Keane DO - 11/06/2023 PROCEDURE: XR CHEST 1VW PORTABLE, DATE/TIME OF EXAM: 11/05/2023 8:53PM, LOCATION [facility] INDICATION: R41.82: Altered mental status, unspecified altered mental status type ADDITIONAL CLINICAL INFORMATION: Ordering Provider Reason For Exam: AMS Technologist Note: Additional: COMPARISON: None. FINDINGS/IMPRESSION: No focal consolidation, pneumothorax, or pleural effusion. The cardiomediastinal silhouette is normal. No displaced fracturesidentified. Report dictated by Demetra Swenson Dr, MD (commercial lending vice president). Tato Ortega DO have personally reviewed and interpreted this examination/study. > Interpreting Provider: Tato Keane DO on 11/06/2023 12:40 PM Tato Daniels MD DIAGNOSTIC IMAGING O RDERABLES * XR LUMBAR SPINE 4VW OR MORE (08/28/2018 10:38 AM CDT) Anatomical Region Laterality Modality Spine Radiographic Carol ging 08/28/2018 10:5 8 AM CDT Impressions 08/28/2018 1:02 PM CDT IMPRESSION: Minor disc and endplate degenerative changes. No evidence of instability. Dictated by Bertha Marks MD (commercial lending vice president). Dr. INNA Ortega have personally reviewed and interpreted this examination/study. This report was electronically signed by INNA MORAES on 08/28/2018 1:02 PM . Narrative 08/28/2018 1:02 PM CDT EXAMINATION: XR LUMBAR SPINE 4VW OR MORE HISTORY: back pain COMPARISON: None FINDINGS: The lumbar lordosis is maintained without subluxation. The vertebral bodies are normal in height without fracture. No aggressive appearing osseous lytic or sclerotic lesions are seen. Degenerative changes of the discs and endplates are seen at multiple levels. There is no evidence of instability on the flexion and extension views. The sacroiliac joints are normal. Procedure Note Inna Moraes MD - 08/28/2018 EXAMINATION: XR LUMBAR SPINE 4VW OR MORE HISTORY: back pain COMPARISON: None FINDINGS: The lumbar lordosis is maintained without subluxation. The vertebral bodies are normal in height without fracture. No aggressive appearing osseous lytic or sclerotic lesions are seen. Degenerative changes of the discs and endplates are seen at multiple levels. There is no evidence of instability on the flexion and extension views. The sacroiliac jointsare normal. IMPRESSION: Minor disc and endplate degenerative changes. No evidence ofinstability. Dictated by Bertha Marks MD (commercial lending vice president). Dr. INNA Ortega have personally reviewed and interpreted this examination/study. This report was electronically signed by INNA MORAES on 08/28/2018 1:02PM . Florin Laws MD DIAGNOSTIC IMAGI NG ORDERABLES * NON-STRESS TEST (09/15/2016 11:47 AM CDT) Only the most recent of2 resultswithin the time period is included. Anatomical Region Laterality Modality Other Narrative 09/15/2016 11:47 AM CDT Bogdan Dumont MD 09/15/2016 11:47 AM Outpatient Non-Stress Test Report Date:09/15/2016 Name of Patient:Annelise Lubin Indication for Non-Stress Test: Type 2 DM, obesity, CHTN Gestational age: 36w0d Procedure: Non-Stress Test Baseline Heart Rate: 130 bpm Variability: moderate Accelerations:Present Decelerations: Absent Contractions: Absent Uterine Irritability: Absent Movement: Present Acoustic Stimulation: No Interpretation: reactive Category: Category 1 Interpretation: Reassuring non-stress test Recommendation: Continue testing as previously recommended. Bogdan Dumont MD Maternal Medicine Yue Jackson MD [facility] ORDERABLES * BIOPHYSICAL PROFILE W NST (09/08/2016 10:30 AM CDT) Only the most recent of2 resultswithin the time period is included. Anatomical Region Laterality Modality Other 09/08/2016 10:3 0 AM CDT Narrative 09/08/2016 11:57 AM CDT [facility] M[facility] PHONE: FAX: Pat. Name: ANNELISE LUBIN Pat. No: [id number] Study Date: 09/08/2016 10:30am , Age: 05 1975, 41 Pregnancies: 4, Para 3 Height: 68 in Weight: 214 lb LMP: Unknown GA by 1st: 35w0d GA by US: 38w0d GA Selected: 35w0d (From First S) TOÑO: 10/13/2016 Referring MD: Nancy Ellsworth MD Gyro Mechanic: Misa Ramirez RDMS CPT4: 91999, 82385 BMI: 32.54 Hist/Ind: Type 2 diabetes CHTN AMA >40 MEASUREMENTS & AGE GROWTH EVALUATION Measurement GA Range Srce %for GA Ratios ----- ---- ------- BPD 9.3 cm 37w5d (40k2o-70y5i) Hadl BPD 88% FL/BPD 0.73 (0.71 - 0.87) HC 34.4 cm 39w5d (69p4d-78v8i) Hadl HC >95 FL/AC 0.19 (0.20 - 0.24* AC 36.0 cm 39w6d (98f1t-90z7u) Hadl AC >95 HC/AC 0.96 (0.93 - 1.12) FL 6.7 cm 34w4d (54t6f-41g4y) Hadl FL 44% CI 0.77 (0.70 - 0.86) GA for sonogram 38w0d (28c0d-88b5c) Weight Estimate: based on (BPD,HC,AC,FL) Avg Weight: 3510 gm (2642-7381) Hadlo : 7lbs, 11oz Normal: 2595 gm (4089-5965) Hadlo Wt% >90 for 35w0d Heart Rate: 142 bpm Amniotic Fluid Index: 14.4cm (07.9-24.9) Q1: 1.8cm Q2: 2.0cm Q3: 6.1cm Q4: 4.5cm Biophysical Profile: 12/21 Breathin Tone: 2 NST: 2 Movement: 2 AFV: 2 CLINICAL SUMMARY Study Number: 14 A single fetus is identified in vertex presentation. The measurements today are consistent with accelerated growth. The TOÑO selected is based on a prior ultrasound. The estimated weight is at the >90%. The amniotic fluid volume is within normal limits. The placenta is anterior. The patient was advised that ultrasound does not allow detection of all structural or chromosomal abnormalities. IMPRESSION: Single, live vertex IUP at 35w0d Normal amniotic fluid volume LGA growth LGA and Reassuring testing Placental location: Anterior No major malformations are seen today within the limitations of ultrasound RECOMMEND: Follow up ultrasound as clinically indicated. Weekly BPP and NST twice weekly Adjusted insulin - see MFM consult Thank you for allowing us the opportunity to care for your patient. Abdoulaye Guido MD <Electronic Signature> 09/08/2016 11:57am Bogdan Dumont MD [facility] ORDERABLES * ECHO CONSULT - (08/30/2016 2:55 PM CDT) 08/30/2016 2:55 PM CDT Narrative Procedure Note Veronica Payton MD - 08/30/2016 [facility] [place] [phone] Fax Echocardiogram Report Pat.[facility] [id number] St.Date: 08/30/2016 Exam Time: 2:55:00 PM Study Type: Echo Age: 5 1975,41Y Sex: FEMALE Sonogrphr: Christy Valenzuela RDCS Pat. Stat.:Outpatient CPT - 4: 47240, 81797, 28205, 35157 Reason for Study:Maternal diabetes History / Clinical:Diabetes 215 10/13/2016 Procedures: 2D Complete, Doppler Complete, Color Flow Visit ID: [id number] SUMMARY: Study Data: GA: 33w5d weeks. TOÑO: . : 4. Para: 3. Type: Amos. Lie: Vertex. Impression: The echocardiogram was within normal limits; however small atrial and ventricular septal defects and persistent ductus arteriosus cannot be excluded as findings. The aortic arch was visualized in limited views without evidence of obstruction. Findings: Anatomic Relationships: Left sided cardiac apex (levocardia). There is normal visceral-cardiac situs, and normal segmental cardiac anatomical relationship. Systemic Veins: There is normal systemic venous return. Pulmonary Veins: The visualized pulmonary veins drain normally to the left atrium. Right Atrium: The right atrial size is normal. Left Atrium: The left atrial size is normal. Atrial Septum: Patent foramen ovale is seen with the foramen flap bowing from right to left and color flow is right to left. Tricuspid Valve: The tricuspid valve is structurally normal. The inflow pattern is normal. Tricuspid velocity is within the normal range. There is no regurgitation present. Mitral Valve: The mitral valve is structurally normal. The inflow pattern is normal. Mitral velocity is within the normal range. There is no regurgitation present. Right Ventricle: The cavity size is normal. The wall thickness is normal. The systolic function is normal. RV Outflow Tract: The outflow tract is normal. Left Ventricle: The cavity size is normal. The wall thickness is normal. The systolic function is normal. LV Outflow Tract: The outflow tract is normal. Ventricular Septum: There is no defect with no shunting. Pulmonary Valve: Leaflets exhibited normal mobility. The transpulmonic velocity is within the normal range. There is no regurgitation present. Aortic Valve: Leaflets exhibited normal mobility. The transaortic velocity is within the normal range. There is no regurgitation present. Pulmonary Artery: The MPA is normal with confluent branch pulmonary arteries. Aorta: aortic arch visualized in limited views and is without obstruction by 2D, and color flow. Ductus Arteriosus: The antegrade flow velocity and pattern in the ductal arch is normal. A normal ductus arteriosus is appreciated. Hydrops Assessment: No pericardial effusion. No evidence of ascites or pleural effusion. Rhythm: The rhythm is normal. There is 1:1 AV conduction. Dopplers: Flow in the ductus venosus is normal. The umbilical vein flow pattern is normal. The umbilical artery flow pattern is normal. MEASUREMENTS: DOPPLER Mitral Valve MV pkE 0.5 m/s MV pkA 0.7 m/s Tricuspid Valve TV pkE 0.6 m/s Aortic Valve AVpkPG 2.7 mmHg AVpkVel 0.8 m/s Pulmonic Valve PV pkPG 3.7 mmHg PV pkVel 1 m/s Signed 08/30/2016 04:11 PM Veronica Payton MD Bogdan Dumont MD ECHO ORDERABLES [facility] [address] [place] [address] * SONOGRAM - COMPLETE (2016 11:05 AM CDT) Only the most recent of5 resultswithin the time period is included. Anatomical Region Laterality Modality Other 2016 11:0 5 AM CDT Narrative 2016 12:41 PM CDT RE[facility] Holguin M[facility] PHONE: FAX: Pat. Name: ANNELISE LUBIN Pat. No: [id number] Study Date: 2016 11:05am , Age: 05 1975, 41 Pregnancies: 4, Para 3 Height: 68 in Weight: 214 lb LMP: Unknown GA by 1st: 31w0d GA by US: 32w0d GA Selected: 31w0d (From Known E) TOÑO: 10/13/2016 Referring MD: Nancy Ellsworth MD Gyro Mechanic: Cee Alvarado RDMS BMI: 32.54 Hist/Ind: AMA DM Type II cHTN Growth Hx of shortened cervix MEASUREMENTS & AGE GROWTH EVALUATION Measurement GA Range Srce %for GA Ratios ----- ---- ------- BPD 8.1 cm 32w3d (00j7q-90p7x) Hadl BPD 71% FL/BPD 0.72 (0.71 - 0.87) HC 30.2 cm 33w4d (50k5o-85s2o) Hadl HC 89% FL/AC 0.21 (0.20 - 0.24) AC 27.5 cm 31w4d (42p3i-78i8v) Hadl AC 58% HC/AC 1.10 (0.96 - 1.15) FL 5.8 cm 30w3d (49u2p-71y3y) Hadl FL 41% CI 0.77 (0.70 - 0.86) GA for sonogram 32w0d (22a7m-23z1x) Weight Estimate: based on (BPD,HC,AC,FL) Avg Weight: 1773 gm (0489-9796) Hadlo : 3lbs, 14oz Normal: 1751 gm (8925-1668) Hadlo Wt% 53% for 31w0d Heart Rate: 136 bpm Amniotic Fluid Index: 21.8cm (08.8-23.8) Q1: 5.7cm Q2: 5.1cm Q3: 4.6cm Q4: 6.4cm CLINICAL SUMMARY Study Number: 12 A single fetus is identified in cephalic presentation. The measurements today are consistent with appropriate growth compared to previous study. The TOÑO selected is based on a prior ultrasound examination (confirmed). The amniotic fluid volume is within normal limits. The placenta is anterior. No major malformations are seen. The patient was advised that ultrasound does not allow detection of all structural or chromosomal abnormalities. Breathing, tone, and movement was visualized on today's exam. IMPRESSION: Single, live, IUP 31w0d Appropriate interval growth Normal fluid assessment RECOMMEND: Follow up ultrasound in 3 - 4 weeks for growth evaluation Weekly testing to commence next week. Thank you for allowing us the opportunity to care for your patient. French Goode MD <Electronic Signature> 2016 12:31pm Bogdan Dumont MD [facility] ORDERABLES * SONOGRAM - TRANSVAGINAL (07/28/2016 10:36 AM CDT) Only the most recent of7 resultswithin the time period is included. Anatomical Region Laterality Modality Other 07/28/2016 10:3 6 AM CDT Narrative 07/28/2016 11:46 AM CDT [facility] Maternal Medicine [facility] PHONE: FAX: Chantal. Name: KYLIEGABEANNELISE HANSON. No: [id number] Study Date: 07/28/2016 10:36am , Age: 05 1975, 40 Pregnancies: 4, Para 3 Height: 68 in Weight: 214 lb LMP: Unknown GA by 1st: 29w0d GA Selected: 29w0d (From First S) TOÑO: 10/13/2016 Referring MD: Nancy Ellsworth MD Gyro Mechanic: Cee Alvarado BMI: 32.54 Hist/Ind: AMA DM Type II cHTN Cervical Length Cervical Length: 1.5 cm Heart Rate: 159 bpm Amniotic Fluid Index: 12.8cm (09.2-23.1) Q1: 2.4cm Q2: 2.6cm Q3: 6.0cm Q4: 1.8cm CLINICAL SUMMARY Study Number: 11 A single fetus is identified in vertex presentation. The placenta is anterior. The amniotic fluid volume is within normal limits. The amniotic fluid index is 12.75 cm TRANSVAGINAL ULTRASOUND: The transvaginal cervical length measures 1.5cm with no funneling identified. No change is seen with fundal pressure. IMPRESSION: Single, live vertex IUP, 26b8joi 29w0d Normal amniotic fluid volume Stable short cervix RECOMMEND: Follow up ultrasound in 2 weeks for for growth. Thanks for allowing us the opportunity to care for your patient. Abdoulaye Guido MD <Electronic Signature> 07/28/2016 11:46am Zafar Miles MD [facility] ORDERABLES * (ABNORMAL) GLUCOSE - POINT OF CARE (06/09/2016 11:26 AM CDT) Glucose WB/POC 52(L) 70 - 106 mg/dL 06/09/2016 2:30 PM CDT [facility] Blood BLOOD SPECIMEN / Unknown 06/09/2016 11:26 AM CDT 06/09/2016 2:30 PM CDT Lorena Roger MD LAB - POINT OF CARE ORDERABLES Performing Organization Address City/[facility]/ZIP Co de Phone Number [facility] [address] [phone] * URINALYSIS ROUTINE W/REFLEX TO CULTURE (06/09/2016 10:50 AM CDT) Color UA Yellow Straw, Yellow, Dark Yellow 06/09/2016 11:17 AM CDT [facility] Clarity UA Clear 06/09/2016 11:17 AM CDT [facility] Specific [place] UA 1.008 1.005 - 1.030 06/09/2016 11:17 AM CDT [facility] pH UA 6.5 5.0 - 8.0 pH 06/09/2016 11:17 AM CDT [facility] Protein UA Negative Negative 06/09/2016 11:17 AM CDT [facility] Blood UA Negative Negative 06/09/2016 11:17 AM CDT [facility] Leukocyte UA Negative Negative 06/09/2016 11:17 AM CDT [facility] Nitrite UA Negative Negative 06/09/2016 11:17 AM CDT [facility] Glucose UA Negative Negative 06/09/2016 11:17 AM CDT [facility] Ketone UA Negative Negative 06/09/2016 11:17 AM CDT [facility] Bilirubin UA Negative Negative 06/09/2016 11:17 AM CDT [facility] Urobilinogen UA 0.2 0.1 - 1.0 EU/dL 06/09/2016 11:17 AM T [facility] Reflex Status Culture not indicated 06/09/2016 11:17 AM T [facility] Urine URINE SPECIMEN OBTAINED BY CLEAN CATCH PROCEDURE / Unknown Collection / Unknown 06/09/2016 10:50 AM CDT 06/09/2016 10:57 AM CDT Pa Alvarado MD LAB - URINALYSIS ORD ERABLES Performing Organization Address City/[facility]/ZIP Co de Phone Number [facility] [address] [place] [address] * LS RATIO FLUID (12/02/2008 12:17 PM CDT) L/S Ratio 3.2 SEE BELOW [facility] Comment: Immature <1.5 Transitional 1.5-1.9 Mature >2.0 Color Fluid Pale Yellow [facility] Character CSF Slightly Cloudy [facility] Gestational Age 37w4d [facility] Volume Amnio 20 ml [facility] Interpretation L/S Ratio [facility] Comment: PLEASE NOTE - L/S Ratio correlates with gestational age only in normal pregnancies. Abnormalities of , such as Retroplacental Bleeding and Ruptured Membranes, Hypertensive Renal or Cardiovascular Disease, Class D, E, and F Diabetes, and Maternal Hypertension can accelerate L/S Ratio maturation. Conversely, delayed maturation of L/S Ratio can be caused by Erythroblastosis Fetalis, Diabetes Mellitus (Class A, B, or C), and Chronic Nonhypertensive Glomerulonephritis. AMNIOTIC FLUID SPECIMEN / Unknown 12/02/2008 12:17 PM CDT Provider Unknown LAB - BODY FLUID ORD EduquiaBLES Performing Organization Address [facility] Co de Phone Number [facility] [address] [place] [phone] * LUNG MATURITY (12/02/2008 12:17 PM CDT) FLM 77.92 SEE BELOW mg/g [facility] Comment: See Interpretation for Normals Color Fluid Pale Yellow [facility] Character CSF Slightly Cloudy [facility] Gestational Age 37 4/7 [facility] Volume Amnio 20 mL ml [facility] Interpretation FLM S [facility] Comment: FLM Immature ......... <= 39 mg/g Mature ......... >= 55 mg/g Results between 40 and 54 cannot be declared mature or immature and should be evaluated with caution. AMNIOTIC FLUID SPECIMEN / Unknown 12/02/2008 12:17 PM CDT Provider Unknown LAB - BODY FLUID ORD ERABLES Performing Organization Address [facility] Co de Phone Number [facility] [address] [place] [phone] Care Teams Registered Appraiser Relationship Specialty Start Date End Date Tato Dias MD [address] [place] [address] PCP - General 08/28/18 Pedro Tse MD [address] [place] [id number] 08/28/18
--- OUTSIDE RECORDS SUMMARY | 2024-05-23 15:33 | XMS_ITS | Clinical Summary ---
Author Organization [facility] Address [address] [place] [address] Care Team Providers Care Director Social Name Role Phone Tato Dias MD Primary Care Provider [phone] Pedro Tse MD Unavailable [phone] Source Comments [facility],non-owned Affiliates and Associated Physician Practices is amultiple site organization consisting of ambulatory clinics and hospital sitesin [place], [place], [place] and [place]. This disclosure is being madepursuant to the Care Everywhere program and may not contain all information available regarding this patient. Last updated 17.[facility] Allergies Active Allergy Reactions Criticality Noted Date Comments Sulfa Drugs 03/17/2016 Sulfa Drugs GI Discomfort Medium 01/07/2017 Medications * Be aware that medications may not be up to date on this document. Alwaysverify current medications with the patient. Medication Sig Dispensed Refills Start Date End Date Status Ire-Ckl-YI-Fish Oil ([facility]) 0.4-113.5 MG CHEW Take 2 Each by mouth once daily Active metFORMIN (GLUCOPHAGE) 500 MG tablet Take 500 mg by mouth 2 times daily with morning and evening meal Active labetalol (NORMODYNE; TRANDATE) 200 MG tablet Take 200 mg by mouth 2 times daily Active acetaminophen (TYLENOL) 500 MG tablet Take 500 mg by mouth every 4 hours as needed for Headache Maximum allowable Acetaminophen amount = 4 Grams (4000 mg) / 24 hours. Active insulin lispro (HUMALOG) 100 UNIT/ML vial Inject 30 Units subcutaneously 2 times daily,before breakfast and supper 14 units in am and 16 units dinner Activ e RaNITidine HCl (ZANTAC 75 PO) Take 75 mg by mouth A ctive insulin glargine (LANTUS) vial Inject 38 Units subcutaneously at bedtime 26 units HS and 12 units am Active aspirin EC (ECOTRIN) 81 MG tablet Take 81 mg by mouth once daily Active progesterone 200 mg SUPP Insert into the vagina at bedtime 60 Suppository 1 7 Active Additional Information Patient taking differently: 205 suppositoryVaginal AT BEDTIME, Reported on 07/21/2016 FLUoxetine (PROZAC) 20 MG capsule Take 20 mg by mouth once daily Active ferrous sulfate 325 (65 FE) MG tablet Take 325 mg by mouth once daily Active lisinopril (PRINIVIL; ZESTRIL) 20 MG tablet Take 20 mg by mouth once daily Active escitalopram (LEXAPRO) 20 MG tablet Take 20 mg by mouth once daily Active traMADol (ULTRAM) 50 MG tablet Take 50 mg by mouth every 6 hours as needed Acti ve cyclobenzaprine (FLEXERIL) 5 MG tablet Take 5 mg by mouth 3 times daily as needed Active Butalbital-APAP -Caffeine 50-325-40 MG Active Active Problems Problem Noted Date Diagnosed Date Supervision of high risk in [facility] 03/12/2016 Diabetes mellitus complicating , antepa rtum 03/12/2016 Chronic hypertension affecting 016 Obesity affecting 03/12/2016 History of delivery, currently 03/12/2016 AMA (advanced maternal age) multigravida 35+ Family History Medical History Relation Name Comments Arthritis Father Hypertension Father Stroke Father Hypertension Maternal Grandfather Diabetes Maternal Grandmother Hypertension Maternal Grandmother Hypertension Mother Heart Disease Paternal Grandfather Hypertension Paternal Grandfather Diabetes Paternal Grandmother Bleeding Disorders Son son with Von Wildebrand Relation Name Status Comments Father Maternal Grandfather Maternal Grandmother Mother Paternal Grandfather Paternal Grandmother Son Social History Tobacco Use Types Packs/Day Years [...] Mass Index 24.45 08/28/2018 10:52 AM CDT Plan of Treatment Health Maintenance Due Date Last Done Comments COLOGUARD (AGES 45-75) - COL ON CA SCREENING 1974 COLON MONITORING 1974 COLONOSCOPY - COLON CA SCREENING 1974 CT COLONOGRAPHY - COLON CA SCREENING 1974 Colorectal Cancer Screening 1974 FIT - COLON CA SCREENING 1974 FLEX SIG - COLON CA SCREENING 1974 LIPID TESTING 1974 MAMMOGRAM 1974 PAP SMEAR 1974 HIV SCREENING 1989 HEPATITIS C SCREENING 08/06/1992 DTAP/TDAP/TD VACCINES (1 - Tdap) 1993 HEPATITIS B VACCINE (1 of 3 - 19+ 3-dose series) 1993 PNEUMOCOCCAL VACCINE (1 of 2 - PCV) 1993 COVID-19 VACCINE (3 - 2023-2 5 season) 2023 08/28/2021, 06/12/2021 INFLUENZA VACCINE (#1) 2023 12/28/2017 DEPRESSION SCREENING 03/14/2024 ZOSTER VACCINE (1 of 2) 2024 HIB VACCINE Aged Out No longer eligi ble based on patient's age to complete this topic HPV VACCINE Aged Out No longer eligi ble based on patient's age to complete this topic MENINGOCOCCAL (Group B) VACCINE SHARED DECISION-MAKING Aged Out No longer eligible based on patient's age to complete this topic MENINGOCOCCAL GROUPS A/C/Y/W VACCINE Aged Out No longer eligible b ased on patient's age to complete this topic Advance Directives * Full Code (Latest Code Status on File) Date Activated Date Inactivated Comments 06/09/2016 10:37 AM 06/09/2016 12:55 PM Care Teams Director Social Relationship Specialty Start Date End Date Tato Dias MD [address] [place] [address] PCP - General 08/28/18 Pedro Tse MD 10 [facility] [address] [place] [address] 08/28/18
--- OUTSIDE RECORDS SUMMARY | 2024-05-23 15:33 | XMS_ITS | Encounter Summary ---
Author Organization [facility] Address [address] [place] [address] Care Team Providers Care Lay Out Helper Name Role Phone Tato Dias MD Primary Care Provider [phone] Molly Leonard MD Primary Care Provider [phone] Encounter Details Date Type Department Care Team (Late Contact Info) Description 12/26/2017 Abstract [facility] CONVERSION [address] [place], [place] [id number] , Generic Conversion, Social History Tobacco Use Types Packs/Day Years Used Date Smoking Tobacco: Never Assessed Comments Unknown Sex and Gender Information Value Date Recorded Sex Assigned at Female 06/22/2018 4:25 PM CDT Legal Sex Female 9:53 AM SPIRAL WINDER Gender Identity Female 06/22/2018 4:25 PM CDT [...] documented as of this encounter Care Teams Lay Out Helper Relationship Specialty Start Date End Date Tato Dias MD PCP - General INTERNAL MEDICINE 04/12/18 06/04/21 [place] [address] [facility] [address] [place] [address] PCP - General FAMILY PRACTICE 06/05/21 documented as of this encounter
--- OUTSIDE RECORDS SUMMARY | 2024-05-23 15:33 | XMS_ITS | Clinical Summary ---
Author Organization [facility] Address [facility] [place] [address] Care Team Providers Care Nut Sorter Name Role Phone Molly Leonard MD Primary Care Provider Allergies Active Allergy Reactions Criticality Noted Date Comments Sulfa Antibiotics Other (see comment) High 7 pancreatitis Medications metFORMIN 500 MG tabletIndications :Type 2 diabetes mellitus with hyperglycemia, without long-term current use of insulin (CMS/HCC HHS/HCC) Take 1 tablet (500 mg total) by mouth 2 (two) times daily with meals. 180 tablet 2 Active buPROPion 75 MG tabletIndications :Moderate episode of recurrent major depressive disorder (CMS/HCC) Take 1 tablet (75 mg total) by mouth 2 (two) times daily. 180 tablet 2 Active escitalopram 10 MG tabletIndications :Generalized anxiety disorder,Moderate episode of recurrent major depressive disorder (CMS/HCC) Take 1/2 tablet by mouth daily in the morning x7 days. Increase to 1 tablet by mouth daily in the morning x7 days. If needed, increase to 2 tablets daily in the morning. 90 tablet 2 Active lisinopril 20 MG tabletIndications :Essential hypertension Take 1 tablet (20 mg total) by mouth daily. 30 tablet 2 Active Active Problems Problem Noted Date Diagnosed Date Essential hypertension 04/13/2018 Assessment & Plan (09/08/2018 10:13 AM CDT): Well-controlled on current dosing of lisinopril. Recent chemistry reviewed, no indication for repeat testing today. Recheck labs in 6 months. No treatment change. Assessment & Plan (05/23/2018 4:58 PM CDT): Well controlled. 1) Medication: continue current medication regimen unchanged, encouraged home monitoring, call for persistent elevations at or above 130/85. 2) Regular aerobic exercise 3) Recheck in 6 months, sooner should new symptoms or problems arise. Iron deficiency 01/03/2018 Assessment & Plan (09/08/2018 10:14 AM CDT): Checking iron levels today, along with CBC for mild anemia, last check December,. Abnormal MRI, lumbar spine 12/28/2017 Assessment & Plan (09/08/2018 10:16 AM CDT): See low back pain, above. Assessment & Plan (05/23/2018 4:59 PM CDT): Patient with referral to pain management, scheduling pending. Class 1 obesity due to exces s calories with serious comorbidity and body mass index (BMI) of 30.0 to 30.9 in adult 12/28/2017 Overview (04/13/2018): Transitioned From: BMI 30.0-30.9,adult Chronic low back pain 12/28/2017 Assessment & Plan (09/08/2018 10:13 AM CDT): Currently following with neurosurgery, with referrals to pain management for injections for potential sacroiliitis. Ordering nerve conduction studies to evaluate radiculopathy on the left. Depending on those outcomes, possible surgical intervention. Continue tramadol and cyclobenzaprine. Assessment & Plan (05/23/2018 5:00 PM CDT): Patient with referral to pain management, scheduling pending. Nicotine dependence 12/28/2017 Assessment & Plan (09/08/2018 10:13 AM CDT): Pre-contemplative, readdress at follow-up. Type 2 diabetes mellitus wit h hyperglycemia, without long-term current use of insulin ([facility]) 04/19/2017 Overview (04/13/2018): Transitioned From: Diabetes mellitus, type II Assessment & Plan (09/08/2018 10:15 AM CDT): Excellent dietary control, with last hemoglobin A1c of 5.6 in December. Repeat this coming December. Findings more consistent with prediabetes. Hemangioma of liver 04/19/2017 Overview (08/24/2020): Found on CT scan 04/15/2017. 2 cm size. No additional monitoring necessary. Crohn's disease ([facility]) 01/07/2017 Overview (04/13/2018): Description: 2011 Assessment & Plan (09/08/2018 10:14 AM CDT): Stable at this time. Currently dietary control. Continue to monitor and encourage yearly follow-up with gastroenterology. Generalized anxiety disorder 01/07/2017 Assessment & Plan (09/08/2018 10:16 AM CDT): Stable on current dosing of escitalopram. No treatment change. Assessment & Plan (05/23/2018 4:59 PM CDT): Doing well on current medication, but feels she could improve with higher dose. Will increase to 20 mg daily. Medication management 01/07/2017 Assessment & Plan (09/08/2018 10:16 AM CDT): Obtain CBC and iron studies today. Routine lab work in 6 months. Calculus of kidney 06/15/2010 Moderate episode of recurrent major depressive d isorder 06/15/2010 Assessment & Plan (09/08/2018 10:16 AM CDT): See generalized anxiety disorder, above. Assessment & Plan (05/23/2018 4:59 PM CDT): See anxiety, above. Resolved Problems Problem Noted Date Diagnosed Date Resolved Date Left leg pain 06/09/2020 08/24/2020 Microcytic anemia 01/14/2017 04/13/2018 Piriformis syndrome of left side 01/07/2017 04/13/2018 Overview (04/13/2018): Transitioned From: Sciatic nerve pain Ovarian cyst 06/15/2010 04/13/2018 Pancreatitis (HHS/HCC) 06/15/201004/13 Immunizations Name Administration Dates Next Due Dtap 09/27/2011 Influenza Adult (Generic) 12/28/2017 Tdap (Generic) 08/31/2016 Family History Medical History Relation Comments Drug Abuse Brother Hypertension Father Thyroid Disease Father Hypertension Mother Thyroid Disease Mother Relation Status Comments Brother Father Mother Alive Social History Tobacco Use Types Packs/Day Years Used Date Smoking Tobacco: Every Day Cigarettes 0.3 30 Smokeless Tobacco: Never Tobacco Cessation:Counseling Given: Yes Comments:4 a day Alcohol Use Standard Drinks/Week [...] PM CDT Legal Sex Female 9:53 AM AIR TRAFFIC CONTROL EQUIPMENT REPAIRER Gender Identity Female 06/22/2018 4:25 PM CDT Sexual Orientation Straight 06/22/2018 4: 25 PM CDT Last Filed Vital Signs Vital Sign Reading Time Taken Comments Blood Pressure 132/70 03/17/2021 4:14 PM AIR TRAFFIC CONTROL EQUIPMENT REPAIRER Pulse 96 03/17/2021 4:14 PM AIR TRAFFIC CONTROL EQUIPMENT REPAIRER Temperature 37 C (98.6 F) 03/17/2021 4:14 PM AIR TRAFFIC CONTROL EQUIPMENT REPAIRER Respiratory Rate 18 03/17/2021 4:14 PM AIR TRAFFIC CONTROL EQUIPMENT REPAIRER Oxygen Saturation 99% 03/17/2021 4:14 PM AIR TRAFFIC CONTROL EQUIPMENT REPAIRER Inhaled Oxygen Concentration - - Weight 94.3 kg (208 lb) 03/17/2021 4:14 PM AIR TRAFFIC CONTROL EQUIPMENT REPAIRER Height 175.3 cm (5' 9 ) 03/17/2021 4:14 PM AIR TRAFFIC CONTROL EQUIPMENT REPAIRER Body Mass Index 30.72 03/17/2021 4:14 PM AIR TRAFFIC CONTROL EQUIPMENT REPAIRER Plan of Treatment Health Maintenance Due Date Last Done Comments Cervical Cancer Screening Pap Smear (Age 30 to 64) Every 3 Years 1974 Kidney Health Evaluation 1974 Pneumococcal Vaccine: Pediatrics (0 to 5 Years) and At-Risk Patients (6 to 64 Years) (1 of 2 - PCV) 1980 Diabetes: Retinopathy Eye Exam 1992 Hepatitis C 1992 Hepatitis B Vaccines (1 of 3 - 19+ 3-dose series) 1993 Mammogram Screening 2014 Cervical Cancer Screening Pap with HPV Testing (Age 30 to 64) Every 5 Years 10/19/2019 10/18/2014, 02/27/2014 Cervical Cancer Screening with HPV 10/19/2019 Lipid Panel 12/25/2020 12/26/2019, 05/30/2019 Annual Physical 08/20/2021 08/20/2020 Hemoglobin A1C 09/14/2021 03/17/2021, 09/2019, 05/30/2019, Additional history exists COVID-19 Vaccine ( - season) 2023 Influenza Adult (#1) 2023 12/28/2017 DTaP, Tdap and Td Vaccines (3 - Td or Tdap) 08/31/2026 08/31/2016, 09/27/2011 Colorectal Cancer Screening Colonoscopy (10 Years) 04/08/2027 04/08/2017 Meningococcal B Vaccine Aged Out No l onger eligible based on patient's age to complete this topic Meningococcal Vaccine Aged Out No myriam abdi eligible based on patient's age to complete this topic RSV Immunizations Under 20 Months Aged Out No longer eligible based on patient's age to complete this topic Procedures Procedure Name Priority Date/Time Associated Diagnosis Comments HEMOGLOBIN, GLYCOSYLATED Routine 03/17/2021 4:37 PM AIR TRAFFIC CONTROL EQUIPMENT REPAIRER Medication management Type 2 diabetes mellitus with hyperglycemia, without long-term current use of insulin LIPID PANEL 12/26/2019 10:55 AM CDT COLONOSCOPY Routine 04/08/2017 12:00 AM AIR TRAFFIC CONTROL EQUIPMENT REPAIRER OUTSIDE CYTOPATH CERV/VAG INTERPRET (PAP) Routine 10/18/2014 12:00 AM CDT from Last 3 Months or Most Recently Relevant to Health Maintenance Results * HEMOGLOBIN, GLYCOSYLATED (03/17/2021 4:37 PM AIR TRAFFIC CONTROL EQUIPMENT REPAIRER) HGB A1C 7.1 % [id number] Taj [place] 03/17/2021 4:37 PM AIR TRAFFIC CONTROL EQUIPMENT REPAIRER Tato Dias MD LABORATORY Final Res ult Performing Organization Address [facility]/ZIP Co de Phone Number -[phone] [place] [address] [place] [address], * (ABNORMAL) LIPID PANEL (12/26/2019 10:55 AM CDT) CHOLESTEROL 214(H) 100 - 199 mg/dL [facility] TRIGLYCERIDES 204(H) 0 - 149 mg/dL [facility] HDL 53 >39 mg/dL [facility] VLDL CALCULATION 36 5 - 40 mg/dL [facility] LDL (CALCULATED) 125(H) 0 - 99 mg/dL [facility] 1 12/26/2019 10:5 5 AM CDT 12/26/2019 Narrative [facility] - 12/27/2019 10:08 AM CDT Performed at: 01 - [facility] [address] [id number] Telecommunication Engineer: Erick Kruse PhD, Phone: [phone] Tato Dias MD LABORATORY Final Res ult [facility] [address] [place] [address] [facility] * Colonoscopy (04/08/2017 12:00 AM AIR TRAFFIC CONTROL EQUIPMENT REPAIRER) 04/08/2017 04/08/2017 Narrative [facility] TO EPIC CONVERSION - 04/08/2017 12:00 AM AIR TRAFFIC CONTROL EQUIPMENT REPAIRER Documented hx of procedure Procedure Note Salena Talavera MD - 01/15/2018 Documented hx of procedure us Generic Conversion Md TALAVERA GI PROCEDURE ORDERABLES Final Result [facility] CONVERSION * PAP SMEAR WITH HPV (10/18/2014 12:00 AM CDT) 10/18/2014 us Documents Scanned SCANNING Final Result ROSA PANIAGUA from Last 3 Months or Most Recently Relevant to Health Maintenance Insurance [facility] Care Teams Nut Sorter Relationship Specialty [place] [address] [facility]. [address] [place] [address] PCP - General FAMILY PRACTICE 06/05/21
--- OUTSIDE RECORDS SUMMARY | 2024-05-23 15:33 | XMS_ITS | Referral Summary ---
Author Organization [facility] Address [address] [facility] [place] [address] Care Team Providers Care Male Infertility Specialist Name Role Phone Tato Dias MD Primary Care Provider [phone] Pedro Tse MD Unavailable [phone] Source Comments [facility],non-owned Affiliates and Associated Physician Practices is amultiple site organization consisting of ambulatory clinics and hospital sitesin [place], [place], [place] and [place]. This disclosure is being madepursuant to the Care Everywhere program and may not contain all information available regarding this patient. Last updated 17.[facility] Allergies Active Allergy Reactions Criticality Noted Date Comments Sulfa Drugs 03/17/2016 Sulfa Drugs GI Discomfort Medium 01/07/2017 Medications * Be aware that medications may not be up to date on this document. Alwaysverify current medications with the patient. Medication Sig Dispensed Refills Start Date End Date Status Vlu-Zlw-GB-Fish Oil ([facility]) 0.4-113.5 MG CHEW Take [...] Diagnosed Date Supervision of high risk in [facility] 03/12/2016 Diabetes mellitus complicating , antepa rtum [...] Mass Index 24.45 08/28/2018 10:52 AM CDT Functional Status Functional Status Response Date of Assess ment Is person deaf or have serious hearing difficult y? No 06/09/2016 Is person blind or have serious difficulty seein g? No 06/09/2016 Does person have serious dif ficulty walking/climbing stairs? No 06/09/2016 Does person have difficulty dressing/bathing? No 06/09/2016 Does person have difficulty doing errands alone? No 06/09/2016 Cognitive Status Response Date of Assessm ent Does person have difficulty concentrating/remembering/making decisions? No 06/09/2016 Plan of Treatment Not on file Advance Directives * Full Code (Latest Code Status on File) Date Activated Date Inactivated Comments 06/09/2016 10:37 AM 06/09/2016 12:55 PM Care Teams Male Infertility Specialist Relationship Specialty Start Date End Date Tato Dias MD [address] [place] [address] PCP - General 08/28/18 Pedro Tse MD [address] [address] 08/28/18
--- OUTSIDE RECORDS SUMMARY | 2024-05-23 15:33 | XMS_ITS | Encounter Summary ---
Author Organization [facility] Address [address] [place] [address] Care Team Providers Care Supervisor Assembly And Packing Name Role Phone Tato Dias MD Primary Care Provider [phone] Molly Leonard MD Primary Care Provider [phone] Encounter Details Date Type Department Care Team (Late st Contact Info) Description 04/13/2018 Abstract [facility] CONVERSION [address] [place], [place] [id number] , Generic ConversionMD Social History Tobacco Use Types Packs/Day Years Used Date Smoking Tobacco: Every Day Cigarettes Smokeless Tobacco: Never Alcohol Use Standard Drinks/Week Comments Yes 0 (1 standard drink = 0.6 oz pur e alcohol) social Comments Unknown Sex and Gender Information Value Date Recorded Sex Assigned at Female 06/22/2018 4:25 PM CDT Legal Sex Female 9:53 AM LANDFILL ATTENDANT Gender Identity Female 06/22/2018 4:25 PM CDT Sexual Orientation Straight 06/22/2018 4: 25 PM CDT Occupation Industry Job Start Date Job End Date Not on file Not on file Not on file Not on file documented as of this encounter Plan of [...] documented as of this encounter Care Teams Supervisor Assembly And Packing Relationship Specialty Start Date End Date Tato Dias MD PCP - General INTERNAL MEDICINE 04/12/18 06/04/21 [place] [address] [facility]. [address] [place] [address] PCP - General FAMILY PRACTICE 06/05/21 documented as of this encounter
--- OUTSIDE RECORDS SUMMARY | 2024-05-23 15:33 | XMS_ITS | Encounter Summary ---
Author Organization [facility] Address [address] [place] [address] Care Team Providers Care Watch Inspector Final Movement Name Role Phone Tato Dias MD Primary Care Provider [phone] Molly Leonard MD Primary Care Provider [phone] Encounter Details Date Type Department Care Team (Late st Contact Info) Description 09/01/2015 Abstract [facility] CONVERSION [address] [place], [place] [id number] , Generic Conversion, Social History Tobacco Use Types Packs/Day Years Used Date Smoking Tobacco: Never Assessed Comments Unknown Sex and Gender Information Value Date Recorded Sex Assigned at Female 06/22/2018 4:25 PM CDT Legal Sex Female 9:53 AM ASBESTOS SURVEYOR Gender Identity Female 06/22/2018 4:25 PM CDT [...] documented as of this encounter Care Teams Watch Inspector Final Movement Relationship Specialty Start Date End Date Tato Dias MD PCP - General INTERNAL MEDICINE 04/12/18 06/04/21 [place] [address] [facility] [address] [place] [address] PCP - General FAMILY PRACTICE 06/05/21 documented as of this encounter
[2024-05-23 15:37] LABS: Percent Iron Saturation 18 % (20-50)
[2024-05-23 15:49] LABS: Alanine Aminotransferase 19 U/L (6-35); Albumin Level 4.3 g/dL (3.5-5.1); Alkaline Phosphatase 99 U/L (38-126); Anion Gap 9 mmol/L (4-12); Aspartate Amino Transferase 27 U/L (14-36); Bilirubin,Total 0.5 mg/dL (0.2-1.3); Blood Urea Nitrogen 17 mg/dL (7-17); Calcium 9.2 mg/dL (8.4-10.2); Carbon Dioxide 27 mmol/L (22-30); Chloride 104 mmol/L (98-107); Cholesterol 147 mg/dL (0-200); Estimated Glomerular Filt Rate 58; Glucose 142 mg/dL (65-110); HDL Direct 50 mg/dL; Potassium 4.1 mmol/L (3.4-5.0); Sodium 140 mmol/L (137-145); Triglycerides 337 mg/dL (<150)
[2024-05-23 16:01] LABS: LDL Cholesterol Direct 57 mg/dL
[2024-05-23 16:18] LABS: Free T4 Free Thyroxine 1.06 ng/dL (0.78-2.19)
[2024-05-23 16:57] LABS: Folic Acid 6.5 ng/mL (2.76->20)
== END 2024-05-23 13:52 | disposition home or self-care (01) ==
LOC: ANHLAB 13:51
PROVIDERS: PCP Internal Medicine; Visit Provider Internal Medicine
DX: F41.8 Other specified anxiety disorders (principal); I10 Essential (primary) hypertension; R53.82 Chronic fatigue, unspecified; D50.9 Iron deficiency anemia, unspecified; Z79.899 Other long term (current) drug therapy; E11.9 Type 2 diabetes mellitus without complications; E53.8 Deficiency of other specified B group vitamins; E50.9 Vitamin A deficiency, unspecified
CPT/HCPCS: 36415; 80053; 80061; 82306; 82607; 82728; 82746; 83036; 83540; 83550; 84439; 84443; 85025

== ENCOUNTER 2024-05-29 10:58 | Outpatient (CLI) | payer OTHER, SELFPAY ==
--- OUTSIDE RECORDS SUMMARY | 2024-05-29 12:35 | XMS_ITS | Encounter Summary ---
Author Organization [facility] Address [address] [place] [address] Care Team Providers Care Green Chain Puller Name Role Phone Tato Dias MD Primary Care Provider [phone] Molly Leonard MD Primary Care Provider [phone] Encounter Details Date Type Department Care Team (Latest Contact Info) Description 11/16/2017 Abstract [facility] , Salena Weinberg MD Social History Tobacco Use Types Packs/Day Years Used Date Smoking Tobacco: Never Assessed Comments Unknown Sex and Gender Information Value Date Recorded Sex Assigned at Female 06/22/2018 4:25 PM CDT Legal Sex Female 9:53 AM CUSTOMER ACCOUNT COORDINATOR Gender Identity Female 06/22/2018 4:25 PM CDT [...] documented as of this encounter Care Teams Green Chain Puller Relationship Specialty Start Date End Date Tato Dias MD PCP - General INTERNAL MEDICINE 04/12/18 06/04/21 [place] [address] [facility] [place] [address] PCP - General FAMILY PRACTICE 06/05/21 documented as of this encounter
--- OUTSIDE RECORDS SUMMARY | 2024-05-29 12:35 | XMS_ITS | Encounter Summary ---
Author Organization [facility] Address [address] [place] [address] Care Team Providers Care Hunter Skin Diver Name Role Phone Tato Dias MD Primary Care Provider [phone] Molly Leonard MD Primary Care Provider [phone] Encounter Details Date Type Department Care Team (Late Contact Info) Description 06/01/2021 MyChart Message Enc [facility] Family & Internal Medicine [address] [address] Tato Dias MD [address] [facility] [address] [address] Appointment on 06/15/21 - Dr [...] PM CDT Legal Sex Female 9:53 AM DEVELOPER SUPPORT ENGINEER Gender Identity Female 06/22/2018 4:25 PM CDT Sexual Orientation Straight 06/22/2018 4: 25 PM CDT documented as of this encounter Plan of Treatment Not on file documented as of this encounter Visit Diagnoses Not on filedocumented in this encounter Additional Health Concerns Assessment Noted Time PHQ-9 Depression Total Score: 21 022 4:20 PM DEVELOPER SUPPORT ENGINEER documented as of this encounter Care Teams Hunter Skin Diver Relationship Specialty Start Date End Date Tato Dias MD PCP - General INTERNAL MEDICINE 04/12/18 06/04/21 [place] [address] [facility]. [address] [place] [address] PCP - General FAMILY PRACTICE 06/05/21 documented as of this encounter
--- OUTSIDE RECORDS SUMMARY | 2024-05-29 12:35 | XMS_ITS | Encounter Summary ---
Author Organization [facility] Address [address] [place] [address] Care Team Providers Care Hazardous Materials Handler Name Role Phone Tato Dias MD Primary Care Provider [phone] Molly Leonard MD Primary Care Provider [phone] Encounter Details Date Type Department Care Team (Late Contact Info) Description 12/26/2017 Abstract [facility] CONVERSION [address] [place], [place] [id number] , Generic Conversion, Social History Tobacco Use Types Packs/Day Years Used Date Smoking Tobacco: Never Assessed Comments Unknown Sex and Gender Information Value Date Recorded Sex Assigned at Female 06/22/2018 4:25 PM CDT Legal Sex Female 9:53 AM HOUSEKEEPER MANAGER Gender Identity Female 06/22/2018 4:25 PM CDT [...] documented as of this encounter Care Teams Hazardous Materials Handler Relationship Specialty Start Date End Date Tato Dias MD PCP - General INTERNAL MEDICINE 04/12/18 06/04/21 [place] [address] [facility] [address] [place] [address] PCP - General FAMILY PRACTICE 06/05/21 documented as of this encounter
--- OUTSIDE RECORDS SUMMARY | 2024-05-29 12:35 | XMS_ITS | Encounter Summary ---
Author Organization [facility] Address [address] [place] [address] Care Team Providers Care Sanitation Tank Washer Name Role Phone Tato Dias MD Primary Care Provider [phone] Molly Leonard MD Primary Care Provider [phone] Encounter Details Date Type Department Care Team (Late st Contact Info) Description 09/01/2015 Abstract [facility] CONVERSION [address] [place] [id number] , Generic Conversion, Social History Tobacco Use Types Packs/Day Years Used Date Smoking Tobacco: Never Assessed Comments Unknown Sex and Gender Information Value Date Recorded Sex Assigned at Female 06/22/2018 4:25 PM CDT Legal Sex Female 9:53 AM RN LABOR AND DELIVERY Gender Identity Female 06/22/2018 4:25 PM CDT [...] documented as of this encounter Care Teams Sanitation Tank Washer Relationship Specialty Start Date End Date Tato Dias MD PCP - General INTERNAL MEDICINE 04/12/18 06/04/21 [place] [address] [facility] [address] [place] [address] PCP - General FAMILY PRACTICE 06/05/21 documented as of this encounter
--- OUTSIDE RECORDS SUMMARY | 2024-05-29 12:35 | XMS_ITS | Encounter Summary ---
Author Organization [facility] Address [address] [place] [address] Care Team Providers Care Sales Planning Manager Name Role Phone Tato Dias MD Primary Care Provider [phone] Molly Leonard MD Primary Care Provider [phone] Encounter Details Date Type Department Care Team (Late st Contact Info) Description 04/13/2018 Abstract [facility] CONVERSION [address] [place], [place] [id number] , Generic ConversionMD Social History Tobacco Use Types Packs/Day Years Used Date Smoking Tobacco: Every Day Cigarettes Smokeless Tobacco: Never Alcohol Use Standard Drinks/Week Comments Yes 0 (1 standard drink = 0.6 oz pur e alcohol) social Comments Unknown Sex and Gender Information Value Date Recorded Sex Assigned at Female 06/22/2018 4:25 PM CDT Legal Sex Female 9:53 AM ORCHESTRA CONDUCTOR Gender Identity Female 06/22/2018 4:25 PM CDT [...] documented as of this encounter Care Teams Sales Planning Manager Relationship Specialty Start Date End Date Tato Dias MD PCP - General INTERNAL MEDICINE 04/12/18 06/04/21 [place] [address] [facility]. [address] [place] [address] PCP - General FAMILY PRACTICE 06/05/21 documented as of this encounter
--- OUTSIDE RECORDS SUMMARY | 2024-05-29 12:35 | XMS_ITS | Clinical Summary ---
Author Organization [facility] Address [facility] [place] [address] Care Team Providers Care Commercial Production Editor Name Role Phone Molly Leonard MD Primary Care Provider [phone] Allergies Active Allergy Reactions Criticality Noted Date [...] hyperglycemia, without long-term current use of insulin ([facility]) 04/19/2017 Overview (04/13/2018): Transitioned From: Diabetes mellitus, type II Assessment & Plan (09/08/2018 10:15 AM CDT): Excellent dietary control, with last hemoglobin A1c of 5.6 in December. Repeat this coming December. Findings more consistent with prediabetes. Hemangioma of liver 04/19/2017 Overview (08/24/2020): Found on CT scan 04/15/2017. 2 cm size. No additional monitoring necessary. Crohn's disease ([facility]) 01/07/2017 Overview (04/13/2018): Description: 2011 Assessment & [...] PM CDT Legal Sex Female 9:53 AM COSMETOLOGY TEACHER Gender Identity Female 06/22/2018 4:25 PM CDT Sexual Orientation Straight 06/22/2018 4: 25 PM CDT Last Filed Vital Signs Vital Sign Reading Time Taken Comments Blood Pressure 132/70 03/17/2021 4:14 PM COSMETOLOGY TEACHER Pulse 96 03/17/2021 4:14 PM COSMETOLOGY TEACHER Temperature 37 C (98.6 F) 03/17/2021 4:14 PM COSMETOLOGY TEACHER Respiratory Rate 18 03/17/2021 4:14 PM COSMETOLOGY TEACHER Oxygen Saturation 99% 03/17/2021 4:14 PM COSMETOLOGY TEACHER Inhaled Oxygen Concentration - - Weight 94.3 kg (208 lb) 03/17/2021 4:14 PM COSMETOLOGY TEACHER Height 175.3 cm (5' 9 ) 03/17/2021 4:14 PM COSMETOLOGY TEACHER Body Mass Index 30.72 03/17/2021 4:14 PM COSMETOLOGY TEACHER Plan of Treatment Health Maintenance Due Date [...] Comments HEMOGLOBIN, GLYCOSYLATED Routine 03/17/2021 4:37 PM COSMETOLOGY TEACHER Medication management Type 2 diabetes mellitus with hyperglycemia, without long-term current use of insulin LIPID PANEL 12/26/2019 10:55 AM CDT COLONOSCOPY Routine 04/08/2017 12:00 AM COSMETOLOGY TEACHER OUTSIDE CYTOPATH CERV/VAG INTERPRET (PAP) Routine 10/18/2014 12:00 AM CDT from Last 3 Months or Most Recently Relevant to Health Maintenance Results * HEMOGLOBIN, GLYCOSYLATED (03/17/2021 4:37 PM COSMETOLOGY TEACHER) HGB A1C 7.1 % [id number] [address] [place] 03/17/2021 4:37 PM COSMETOLOGY TEACHER Tato Dias MD LABORATORY Final Res ult Performing Organization Address [facility]/ZIP Co de Phone Number -[phone] [address] [place] [address], * (ABNORMAL) LIPID PANEL (12/26/2019 10:55 AM [...] AM CDT Performed at: 01 - [facility] [address] [id number] Rib Chopper: Erick Kruse PhD, Phone: [phone] Tato Dias MD LABORATORY Final Res ult [facility] [address] [place] [address] [facility] 1 * Colonoscopy (04/08/2017 12:00 AM COSMETOLOGY TEACHER) 04/08/2017 04/08/2017 Narrative [facility] TO EPIC CONVERSION - 04/08/2017 12:00 AM COSMETOLOGY TEACHER Documented hx of procedure Procedure Note Salena Talavera MD - 01/15/2018 Documented hx of procedure us Generic Conversion Md [facility] PROCEDURE ORDERABLES Final Result [facility] TO EPIC CONVERSION * PAP SMEAR WITH HPV (10/18/2014 12:00 AM CDT) 10/18/2014 us Documents Scanned SCANNING Final Result ROSA PANIAGUA from Last 3 Months or Most Recently Relevant to Health Maintenance Insurance [facility] Care Teams Commercial Production Editor Relationship Specialty [place] [address] [facility]. [address] [place] [address] PCP - General FAMILY PRACTICE 06/05/21
--- OUTSIDE RECORDS SUMMARY | 2024-05-29 12:35 | XMS_ITS | Encounter Summary ---
Author Organization [facility] Address [address] [place] [address] Care Team Providers Care Web Development Instructor Name Role Phone Tato Dias MD Primary Care Provider [phone] Molly Leonard MD Primary Care Provider [phone] Encounter Details Date Type Department Care Team (Late st Contact Info) Description 09/10/[address] [facility] CONVERSION [address] [place] [id number] , Generic Conversion, Social History Tobacco Use Types Packs/Day Years Used Date Smoking Tobacco: Never Assessed Comments Unknown Sex and Gender Information Value Date Recorded Sex Assigned at Female 06/22/2018 4:25 PM CDT Legal Sex Female 9:53 AM ELECTRONIC VIDEO GAMES SERVICER Gender Identity Female 06/22/2018 4:25 PM CDT [...] documented as of this encounter Care Teams Web Development Instructor Relationship Specialty Start Date End Date Tato Dias MD PCP - General INTERNAL MEDICINE 04/12/18 06/04/21 [place] [address] [facility] [address] [place] [address] PCP - General FAMILY PRACTICE 06/05/21 documented as of this encounter
--- OUTSIDE RECORDS SUMMARY | 2024-05-29 12:35 | XMS_ITS | Clinical Summary ---
Author Organization [facility] Address [address] [facility] [place] [address] Care Team Providers Care Lard Mixer Name Role Phone Tato Dias MD Primary Care Provider [phone] Pedro Tse MD Unavailable [phone] Source Comments [facility],non-owned Affiliates and Associated Physician Practices is amultiple site organization consisting of ambulatory clinics and hospital sitesin [place], [place], [place] and [place]. This disclosure is being madepursuant to the Care Everywhere program and may not contain all information available regarding this patient. Last updated 17.[facility] Allergies Active Allergy Reactions Criticality Noted Date Comments Sulfa Drugs 03/17/2016 Sulfa Drugs GI Discomfort Medium 01/07/2017 Medications * Be aware that medications may not be up to date on this document. Alwaysverify current medications with the patient. Medication Sig Dispensed Refills Start Date End Date Status Nmi-Vej-AM-Fish Oil ([facility]) 0.4-113.5 MG CHEW Take [...] FLEX SIG - COLON CA SCREENING 1974 MAMMOGRAM 1974 PAP SMEAR 1974 HIV SCREENING 1989 HEPATITIS C SCREENING 08/06/1992 DTAP/TDAP/TD VACCINES (1 - Tdap) 1993 HEPATITIS B VACCINE (1 of 3 - 19+ 3-dose series) 1993 PNEUMOCOCCAL VACCINE (1 of 2 - PCV) 1993 COVID-19 VACCINE (3 - 2023-2 5 season) 2023 08/28/2021, 06/12/2021 INFLUENZA VACCINE (#1) 2023 12/28/2017 DEPRESSION SCREENING 03/14/2024 ZOSTER VACCINE (1 of 2) 2024 LIPID TESTING 12/25/2024 12/26/2019 HIB VACCINE Aged Out No longer eligi [...] 10:37 AM 06/09/2016 12:55 PM Care Teams Lard Mixer Relationship Specialty Start Date End Date Tato Dias MD [address] [place] [address] PCP - General 08/28/18 Pedro Tse MD [address] [address] 08/28/18
--- OUTSIDE RECORDS SUMMARY | 2024-05-29 12:35 | XMS_ITS | Encounter Summary ---
Author Organization [facility] Address [address] [place] [address] Care Team Providers Care Inspector General Name Role Phone Tato Dias MD Primary Care Provider [phone] Molly Leonard MD Primary Care Provider [phone] Encounter Details Date Type Department Care Team (Late Contact Info) Description 09/04/2016 Abstract [facility] CONVERSION [address] [place] [address] , Generic Conversion, Social History Tobacco Use Types Packs/Day Years Used Date Smoking Tobacco: Never Assessed Comments Unknown Sex and Gender Information Value Date Recorded Sex Assigned at Female 06/22/2018 4:25 PM CDT Legal Sex Female 9:53 AM ANIMAL TRAINER SUPERVISOR Gender Identity Female 06/22/2018 4:25 PM CDT [...] documented as of this encounter Care Teams Inspector General Relationship Specialty Start Date End Date Tato Dias MD PCP - General INTERNAL MEDICINE 04/12/18 06/04/21 [place] [address] [facility] [address] [place] [address] PCP - General FAMILY PRACTICE 06/05/21 documented as of this encounter
--- NOTE | 2024-06-12 18:19 | WPDHOLTEREM ---
Holter/Event Monitor Holter/Event Monitor Date of procedure: 05/29/24 Holter/Event Procedure: 3-7 Day Holter Monitor Indications: Cardiac murmur Conclusion: 1. 7 days holter monitor on 05/29/24. 2. Predominant rhythm is sinus rhythm. HR range 55-150 bpm; average HR 73 bpm. 3. There are rare premature supraventricular complexes and rare supraventricular couplets. There are 2 episodes of supraventricular tachycardia, fastest at 150 bpm and longest lasting 13 beats. 4. There are rare premature ventricular complexes. No ventricular tachycardia. 5. No significant pauses greater than 3 seconds. 6. No symptoms available for correlation.
== END 2024-05-29 10:59 | disposition home or self-care (01) ==
LOC: ANHCARD 10:59
PROVIDERS: PCP Internal Medicine; Visit Provider Internal Medicine
DX: R01.1 Cardiac murmur, unspecified (principal); I10 Essential (primary) hypertension; R55 Syncope and collapse
CPT/HCPCS: 93242

== ENCOUNTER 2024-06-06 07:19 | Outpatient (CLI) | payer OTHER, SELFPAY ==
--- NOTE | ~2024-06-06 | XR_ITS ---
XR hip BI 2V w AP pelvis Ordering provider: J Luis Kapoor MD History: . M25.559 - Pain in unspecified hip . Comparison: None. FINDINGS: BONES: No acute fracture or dislocation. HIP JOINT SPACES: Bilateral hip mild osteoarthritic changes. SACROILIAC JOINT SPACES/LUMBAR SPINE: The sacroiliac joint spaces are normal. Normal visualized lower lumbar spine. PUBIC SYMPHYSIS: Normal. SOFT TISSUES: Normal. IMPRESSION: No acute osseous abnormality of the bilateral hips and pelvis. Bilateral hip mild osteoarthritic juárez ges. Reviewed, dictated and finalized at location A. IMPRESSION: No acute osseous abnormality of the bilateral hips and pelvis. Bilateral hip mi ld osteoarthritic changes.
--- NOTE | ~2024-06-06 | XR_ITS ---
3 VIEWS LUMBAR SPINE Ordering provider: J Luis Kapoor MD History: . M54.50 - Low back pain, unspecified JEAN-CLAUDE DID STUDY . Comparison: September 22, 2023 FINDINGS: VERTEBRAL BODIES: No visible fracture or subluxation. Degenerative changes of the spine. DISK SPACES: Normal. Facet joint disease at the level of L4-L5 and L5-S1. SOFT TISSUES: Normal. IMPRESSION: No acute osseous abnormality lumbar spine. Degenerative changes of the spine. Reviewed, dictated and finalized at location A.
== END 2024-06-06 07:20 | disposition home or self-care (01) ==
LOC: ANHIMG 07:22
PROVIDERS: PCP Internal Medicine; Visit Provider Internal Medicine
DX: M25.551 Pain in right hip (principal); M25.552 Pain in left hip; M54.50 Low back pain, unspecified; G89.29 Other chronic pain; M16.0 Bilateral primary osteoarthritis of hip
CPT/HCPCS: 72110; 73521

== ENCOUNTER 2024-10-18 12:12 | Outpatient (CLI) | payer OTHER, SELFPAY ==
--- OUTSIDE RECORDS SUMMARY | 2024-10-18 12:15 | XMS_ITS | Encounter Summary ---
Author Organization [facility] Address [address] [place] [address] Care Team Providers Care Molder Hand Name Role Phone Tato Dias MD Primary Care Provider [phone] Molly Leonard MD Primary Care Provider [phone] Encounter Details Date Type Department Care Team (Latest Contact Info) Description 11/16/2017 Abstract [facility] Salena Amanda MD Social History Tobacco Use Types Packs/Day Years Used Date Smoking Tobacco: Never Assessed Comments Unknown Sex and Gender Information Value Date Recorded Sex Assigned at Female 06/22/2018 4:25 PM CDT Legal Sex Female 9:53 AM STEAK TENDERIZER 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 Gender Identity Female 06/22/2018 4:25 PM CDT Sexual Orientation Straight 06/22/2018 4: 25 PM CDT documented as of this encounter Plan of Treatment Upcoming Encounters Date Type Department Care Team (Late st Contact Info) Description 10/23/2024 7:30 AM CDT Appointment [place] [address] Jhonny Finley MD [address] [place] [address] documented as of this encounter Visit Diagnoses [...] documented as of this encounter Care Teams Molder Hand Relationship Specialty Start Date End Date Tato Dias MD PCP - General INTERNAL MEDICINE 04/12/18 06/04/21 [place] [address] [facility] [address] [place] [address] PCP - General FAMILY PRACTICE 06/05/21 documented as of this encounter
--- OUTSIDE RECORDS SUMMARY | 2024-10-18 12:15 | XMS_ITS | Clinical Summary ---
Author Organization [facility] Address [address] [facility] [place] [address] Care Team Providers Care Jewelry Designer Name Role Phone Tato Dias MD Primary Care Provider [phone] Pedro Tse MD Unavailable [phone] Source Comments [facility],non-owned Affiliates and Associated Physician Practices is amultiple site organization consisting of ambulatory clinics and hospital sitesin [place], [place], [place] and [place]. This disclosure is being madepursuant to the Care Everywhere program and may not contain all information available regarding this patient. Last updated 17.[facility] Allergies Active Allergy Reactions Criticality Noted Date Comments Sulfa Drugs 03/17/2016 [facility] Drugs GI Discomfort Medium 01/07/2017 Medications * Be aware that medications may not be up to date on this document. Alwaysverify current medications with the patient. Wil-Mcq-GU-Fi sh Oil ([facility]) 0.4-113.5 MG CHEW Take [...] units in am and 16 units dinner Active RaNITidine HCl (ZANTAC 75 PO) Take 75 mg by mouth Active insulin glargine (LANTUS) vial Inject 38 Units subcutaneously at bedtime 26 units HS and 12 units am Active aspirin EC (ECOTRIN) 81 MG tablet Take 81 mg by mouth once daily Active progesterone 200 mg SUPP Insert into the vagina at bedtime 60 Suppository 1 017 Active Additional Information Patient taking differently: 205 [...] by mouth every 6 hours as needed Active cyclobenzapri ne (FLEXERIL) 5 MG tablet Take 5 mg by mouth 3 times daily as needed Act latoya Butalbital-AP AP-Caffeine 50-325-40 MG Active Active Problems Problem Noted Date Diagnosed Date Supervision of high risk in [facility] 03/12/2016 Diabetes mellitus complicating , [...] = 0.6 oz pur e alcohol) OCCA Comments No Sex and Gender Information Value Date Recorded Sex Assigned at Not on file Legal Sex Female 1:07 PM CDT Gender Identity Not on file Sexual Orientation [...] 10:52 AM CDT Height 176.5 cm (5' 9.5) 08/28/2018 10:52 AM CD T Body Mass [...] - COLON CA SCREENING 1974 MAMMOGRAM 1974 HIV SCREENING 1989 HEPATITIS C SCREENING 08/06/1992 DTAP/TDAP/TD VACCINES (1 - Tdap) 1993 HEPATITIS B VACCINE (1 of 3 - 19+ 3-dose series) 1993 PNEUMOCOCCAL VACCINE 50+ (1 of 2 - PCV) 1993 PAP SMEAR 08/12/1995 COVID-19 VACCINE (3 - 2023-2 5 season) 2023 08/28/2021, 06/12/2021 DEPRESSION SCREENING 03/14/2024 ZOSTER VACCINE (1 of 2) 2024 INFLUENZA VACCINE (#1) 2024 12/28/2017 LIPID TESTING 12/25/2024 12/26/2019 HIB VACCINE Aged [...] on patient's age to complete this topic Insurance [facility] CIGNA CIGNA [facility] MEDICAID - [place] MEDICAID - OUT OF STATE [facility] C[facility] SELF PAY NO INSURANCE Member Subscriber Plan / Payer (Ef fective for All Dates) Name:Mikala Sauceda Member ID:Not on file Relation to Subscriber:Not on file Name:MIKALA SAUCEDA Subscriber ID:Not on file Address: [address] [place] [id number] Payer ID:Not on file Group ID:Not on file Type:Self Pay Address: [facility] C[facility] SELF PAY NO INSURANCE Member Subscriber Plan / Payer (Ef fective for All Dates) Name:Mikala Sauceda Member ID:Not on file Relation to Subscriber:Not on file Name:MIKALA SAUCEDA Subscriber ID:Not on file Address: [address] [place] [address] Payer ID:Not on file Group ID:Not on file Type:Self Pay Address: [facility] Advance Directives * Full Code (Latest Code Status on File) Date Activated Date Inactivated Comments 06/09/2016 10:37 AM 06/09/2016 12:55 PM Care Teams Jewelry Designer Relationship Specialty Start Date End Date Tato Dias MD [address] [place] [address] PCP - General 08/28/18 Pedro Tse MD [address] [place] [address] 08/28/18
--- OUTSIDE RECORDS SUMMARY | 2024-10-18 12:15 | XMS_ITS | Encounter Summary ---
Author Organization [facility] Address [address] [place] [address] Care Team Providers Care Deportation Officer Name Role Phone Tato Dias MD Primary Care Provider [phone] Molly Leonard MD Primary Care Provider [phone] Encounter Details Date Type Department Care Team (Late st Contact Info) Description 12/26/2017 Abstract [facility] CONVERSION [address] [place] [address] , Generic Conversion, Social History Tobacco Use Types Packs/Day Years Used Date Smoking Tobacco: Never Assessed Comments Unknown Sex and Gender Information Value Date Recorded Sex Assigned at Female 06/22/2018 4:25 PM CDT Legal Sex Female 9:53 AM CLEAT BLANKER Gender Identity Female 06/22/2018 4:25 PM CDT Sexual Orientation Straight 06/22/2018 4: 25 PM CDT documented as of this encounter Plan of Treatment Upcoming Encounters Date Type Department Care Team (Late Contact Info) Description 10/23/2024 7:30 AM CDT Appointment [facility] [place] [place] [address] Jhonny Finley MD [address] [place] [address] documented as of this encounter Visit [...] documented as of this encounter Care Teams Deportation Officer Relationship Specialty Start Date End Date Tato Dias MD PCP - General INTERNAL MEDICINE 04/12/18 06/04/21 [place] [address] [facility]. [address] [place] [address] PCP - General FAMILY PRACTICE 06/05/21 documented as of this encounter
--- OUTSIDE RECORDS SUMMARY | 2024-10-18 12:15 | XMS_ITS | Encounter Summary ---
Author Organization [facility] Address [facility] [place] [address] Care Team Providers Care Surfacer Operator Name Role Phone Tato Dias MD Primary Care Provider [phone] Molly Leonard MD Primary Care Provider [phone] Encounter Details Date Type Department Care Team (Late st Contact Info) Description 04/13/2018 Abstract [facility] CONVERSION [address] [place], [place] [id number] , Generic Conversion, Social History Tobacco Use Types Packs/Day Years Used Date Smoking Tobacco: Every Day Cigarettes Smokeless Tobacco: Never Alcohol Use Standard Drinks/Week Comments Yes 0 (1 standard drink = 0.6 oz pur e alcohol) social Comments Unknown Sex and Gender Information Value Date Recorded Sex Assigned at Female 06/22/2018 4:25 PM CDT Legal Sex Female 9:53 AM SKI MAKER Gender Identity Female 06/22/2018 4:25 PM CDT Sexual Orientation Straight 06/22/2018 4: 25 PM CDT Occupation Industry Job Start Date Job End Date Not on file Not on file Not on file Not on file documented as of this encounter Plan of Treatment Upcoming Encounters Date Type Department Care Team (Late st Contact Info) Description 10/23/2024 7:[address] [facility] [facility] [place] [address] Jhonny Finley MD [address] [place] [address] documented as of this encounter Visit [...] documented as of this encounter Care Teams Surfacer Operator Relationship Specialty Start Date End Date Tato Dias MD PCP - General INTERNAL MEDICINE 04/12/18 06/04/21 [place] [address] [facility] [address] [place] [address] PCP - General FAMILY PRACTICE 06/05/21 documented as of this encounter
--- OUTSIDE RECORDS SUMMARY | 2024-10-18 12:15 | XMS_ITS | Encounter Summary ---
Author Organization [facility] Address [address] [place] [address] Care Team Providers Care Torpedoman'S Mate Name Role Phone Tato Dias MD Primary Care Provider [phone] Molly [place] MD Primary Care Provider [phone] Encounter Details Date Type Department Care Team (Late st Contact Info) Description 09/01/2015 Abstract [facility] CONVERSION [address] [place] [address] , Generic Conversion, Social History Tobacco Use Types Packs/Day Years Used Date Smoking Tobacco: Never Assessed Comments Unknown Sex and Gender Information Value Date Recorded Sex Assigned at Female 06/22/2018 4:25 PM CDT Legal Sex Female 9:53 AM RAILROAD INSPECTOR Gender Identity Female 06/22/2018 4:25 PM CDT Sexual Orientation Straight 06/22/2018 4: 25 PM CDT documented as of this encounter Plan of Treatment Upcoming Encounters Date Type Department Care Team (Late Contact Info) Description 10/23/2024 7:30 AM CDT Appointment [place] [place] [facility] [place] [address] Jhonny Finley MD [address] [place] [address] documented as of this encounter Visit [...] documented as of this encounter Care Teams Torpedoman'S Mate Relationship Specialty Start Date End Date Tato Dias MD PCP - General INTERNAL MEDICINE 04/12/18 06/04/21 [place] [address] [facility]. [address] [place] [address] PCP - General FAMILY PRACTICE 06/05/21 documented as of this encounter
--- OUTSIDE RECORDS SUMMARY | 2024-10-18 12:15 | XMS_ITS | Encounter Summary ---
Author Organization [facility] Address [facility] [place] [address] Care Team Providers Care Accounting Director Name Role Phone Tato Dias MD Primary Care Provider [phone] Molly [place] MD Primary Care Provider [phone] Encounter Details Date Type Department Care Team (Late st Contact Info) Description 06/01/2021 getuppt Message Enc [facility] Medical Group Family & Internal Medicine [address] [address] Tato Dias MD [address] [facility] [address] [address] Appointment on 06/15/21 - Dr [...] PM CDT Legal Sex Female 9:53 AM 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 ROLLER 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 Gender Identity Female 06/22/2018 4:25 PM CDT Sexual Orientation Straight 06/22/2018 4: 25 PM CDT documented as of this encounter Plan of Treatment Upcoming Encounters Date Type Department Care Team (Late st Contact Info) Description 10/23/2024 7:30 AM CDT Appointment [place] [facility] [place] [address] Jhonny Finley MD [address] [place] [address] documented as of this encounter Visit Diagnoses Not on filedocumented in this encounter Additional Health Concerns Assessment Noted Time PHQ-9 Depression Total Score: 21 022 4:20 PM RUBBER ROLLER GRINDER documented as of this encounter Care Teams Accounting Director Relationship Specialty Start Date End Date Tato Dias MD PCP - General INTERNAL MEDICINE 04/12/18 06/04/21 [place] [address] [facility] [address] [place] [id number] PCP - General FAMILY PRACTICE 06/05/21 documented as of this encounter
--- OUTSIDE RECORDS SUMMARY | 2024-10-18 12:15 | XMS_ITS | Encounter Summary ---
Author Organization [facility] Address [address] [place] [address] Care Team Providers Care Gericare Aide Name Role Phone Tato Dias MD Primary Care Provider [phone] Molly [place] MD Primary Care Provider [phone] Encounter Details Date Type Department Care Team (Late st Contact Info) Description 09/04/2016 Abstract [facility] CONVERSION [address] [place] [address] , Generic Conversion, Social History Tobacco Use Types Packs/Day Years Used Date Smoking Tobacco: Never Assessed Comments Unknown Sex and Gender Information Value Date Recorded Sex Assigned at Female 06/22/2018 4:25 PM CDT Legal Sex Female 9:53 AM ROLL UP GUIDER OPERATOR Gender Identity Female 06/22/2018 4:25 PM CDT Sexual Orientation Straight 06/22/2018 4: 25 PM CDT documented as of this encounter Plan of Treatment Upcoming Encounters Date Type Department Care Team (Late Contact Info) Description 10/23/2024 7:30 AM CDT Appointment [place] [facility] [place], [place] [address] Jhonny Finley MD [address] [place] [address] documented as of this encounter Visit [...] documented as of this encounter Care Teams Gericare Aide Relationship Specialty Start Date End Date Tato Dias MD PCP - General INTERNAL MEDICINE 04/12/18 06/04/21 [place] [address] [facility]. [address] [place] [address] PCP - General FAMILY PRACTICE 06/05/21 documented as of this encounter
--- OUTSIDE RECORDS SUMMARY | 2024-10-18 12:15 | XMS_ITS | Clinical Summary ---
Author Organization [facility] Address [facility] [place] [address] Care Team Providers Care Television Cabinet Finisher Name Role Phone Molly [place] MD Primary Care Provider [phone] Allergies Active Allergy Reactions Criticality Noted Date [...] hyperglycemia, without long-term current use of insulin ([facility]) 04/19/2017 Overview (04/13/2018): Transitioned From: Diabetes mellitus, type II Assessment & Plan (09/08/2018 10:15 AM CDT): Excellent dietary control, with last hemoglobin A1c of 5.6 in December. Repeat this coming December. Findings more consistent with prediabetes. Hemangioma of liver 04/19/2017 Overview (08/24/2020): Found on CT scan 04/15/2017. 2 cm size. No additional monitoring necessary. Crohn's disease ([facility]) 01/07/2017 Overview (04/13/2018): Description: 2011 Assessment & [...] cyst 06/15/2010 04/13/2018 Pancreatitis (HHS/HCC) 06/15/201004/13 Immunizations Immunization Administration Dates Next Due Dtap 09/27/2011 Influenza [...] PM CDT Legal Sex Female 9:53 AM FINISHED GOODS INSPECTOR Gender Identity Female 06/22/2018 4:25 PM CDT Sexual Orientation Straight 06/22/2018 4: 25 PM CDT Last Filed Vital Signs Vital Sign Reading Time Taken Comments Blood Pressure 132/70 03/17/2021 4:14 PM FINISHED GOODS INSPECTOR Pulse 96 03/17/2021 4:14 PM FINISHED GOODS INSPECTOR Temperature 37 C (98.6 F) 03/17/2021 4:14 PM FINISHED GOODS INSPECTOR Respiratory Rate 18 03/17/2021 4:14 PM FINISHED GOODS INSPECTOR Oxygen Saturation 99% 03/17/2021 4:14 PM FINISHED GOODS INSPECTOR Inhaled Oxygen Concentration - - Weight 94.3 kg (208 lb) 03/17/2021 4:14 PM FINISHED GOODS INSPECTOR Height 175.3 cm (5' 9) 03/17/2021 4:14 PM FINISHED GOODS INSPECTOR Body Mass Index 30.72 03/17/2021 4:14 PM FINISHED GOODS INSPECTOR Plan of Treatment Upcoming Encounters Date Type Department Care Team (Late st Contact Info) Description 10/23/2024 7:30 AM CDT Appointment [place] [facility] [place] [address] Jhonny Finley MD [address] [place] [address] Health Maintenance Due Date Last Done Comments Cervical Cancer Screening Pap Smear (Age 30 to 64) Every 3 Years 1974 Kidney Health Evaluation 1974 Diabetes: Retinopathy Eye Exam 1992 Hepatitis C 1992 Hepatitis B Vaccines (1 of 3 - 19+ 3-dose series) 1993 Pneumococcal Vaccine: 50+ Years (1 of 2 - PCV) 1993 Mammogram Screening 2014 Cervical Cancer Screening Pap with HPV Testing (Age 30 to 64) Every 5 Years 10/19/2019 10/18/2014, 02/27/2014 Cervical Cancer Screening with HPV 10/19/2019 Lipid Panel 12/25/2020 12/26/2019, 05/30/2019 Annual Physical 08/20/2021 08/20/2020 Hemoglobin A1C 09/14/2021 03/17/2021, 10/0 09/2019, 05/30/2019, Additional history exists COVID-19 Vaccine ( - 2023- season) 2023 Zoster Vaccines (1 of 2) 2024 DTaP, Tdap and Td Vaccines (3 - [...] Comments HEMOGLOBIN, GLYCOSYLATED Routine 03/17/2021 4:37 PM FINISHED GOODS INSPECTOR Medication management Type 2 diabetes mellitus with hyperglycemia, without long-term current use of insulin LIPID PANEL 12/26/2019 10:55 AM CDT COLONOSCOPY Routine 04/08/2017 12:00 AM FINISHED GOODS INSPECTOR OUTSIDE CYTOPATH CERV/VAG INTERPRET (PAP) Routine 10/18/2014 12:00 AM CDT from Last 3 Months or Most Recently Relevant to Health Maintenance Results * HEMOGLOBIN, GLYCOSYLATED (03/17/2021 4:37 PM FINISHED GOODS INSPECTOR) HGB A1C 7.1 % [id number] [facility] 03/17/2021 4:37 PM FINISHED GOODS INSPECTOR us Tato Dias MD LABORATORY Final Res ult -[id number] [facility] [place] [address] [place] [address], * (ABNORMAL) LIPID PANEL (12/26/2019 10:55 AM [...] 10:08 AM CDT Performed at: 01 - [address] [id number] Fountain Attendant: Erick Kruse PhD, Phone: [phone] us Tato Dias MD LABORATORY Final Res ult [facility] [address] [place] [address] [facility] 1 * Colonoscopy (04/08/2017 12:00 AM FINISHED GOODS INSPECTOR) 04/08/2017 04/08/2017 Narrative [facility] TO EPIC CONVERSION - 04/08/2017 12:00 AM FINISHED GOODS INSPECTOR Documented hx of procedure Procedure Note Salena Talavera MD - 01/15/2018 Documented hx of procedure us Generic Conversion Md TALAVERA GI PROCEDURE ORDERABLES Final Result [facility] TO EPIC CONVERSION * PAP SMEAR WITH HPV (10/18/2014 12:00 AM CDT) 10/18/2014 us Documents Scanned SCANNING Final Result [facility] from Last 3 Months or Most Recently Relevant to Health Maintenance Insurance [facility] Care Teams Television Cabinet Finisher Relationship Specialty [place] [address] [facility] [address] [place] [address] PCP - General FAMILY PRACTICE 06/05/21
--- OUTSIDE RECORDS SUMMARY | 2024-10-18 12:15 | XMS_ITS | Encounter Summary ---
Author Organization [facility] Address [address] [place] [address] Care Team Providers Care C Iron Worker Name Role Phone Tato Dias MD Primary Care Provider [phone] Molly [place] MD Primary Care Provider [phone] Encounter Details Date Type Department Care Team (Late st Contact Info) Description 09/10/2016 Abstract [facility] CONVERSION [address] [place] [address] , Generic Conversion, Social History Tobacco Use Types Packs/Day Years Used Date Smoking Tobacco: Never Assessed Comments Unknown Sex and Gender Information Value Date Recorded Sex Assigned at Female 06/22/2018 4:25 PM CDT Legal Sex Female 9:53 AM WEB PRODUCTION ARTIST Gender Identity Female 06/22/2018 4:25 PM CDT Sexual Orientation Straight 06/22/2018 4: 25 PM CDT documented as of this encounter Plan of Treatment Upcoming Encounters Date Type Department Care Team (Late Contact Info) Description 10/23/2024 7:30 AM CDT Appointment [place] [facility] [place] [place] [address] Jhonny Finley MD [address] [place] [address] documented as of this encounter Visit [...] documented as of this encounter Care Teams C Iron Worker Relationship Specialty Start Date End Date Tato Dias MD PCP - General INTERNAL MEDICINE 04/12/18 06/04/21 [place] [address] [facility]. [address] [place] [address] PCP - General FAMILY PRACTICE 06/05/21 documented as of this encounter
[2024-10-18 12:44] LABS: Hematocrit 39.7 % (37.0-47.0); Hemoglobin 13.3 g/dL (12.0-15.0); Immature Granulocyte Percent A 0.2 % (0-0.5); Lymphocytes Absolute Auto 1.94 K/mm3 (0.9-3.2); Mean Corpuscular HGB Conc 33.5 g/dl (32-36); Mean Corpuscular Hemoglobin 29.9 pg (26-34); Mean Corpuscular Volume 89.2 fl (80-100); Nucleated Red Blood Cells Absolute Auto 0.000 K/mm3 (0.0-0.012); Nucleated Red Blood Cells Perc 0.0 % (0.0-0.2); Platelet Count Result 255 k/mm3 (150-375); Red Blood Count 4.45 M/mm3 (4.2-5.4); White Blood Count 6.2 K/mm3 (4.5-10.0)
[2024-10-18 12:46] LABS: Add Urine Microscopic? NO; Appearance Urine Clear (Clear); Glucose Urine UA Negative (Negative); Leukocyte Esterase Ur Negative LEU/UL (Negative); Nitrate Urine Negative (Negative); Specific Grav Ur 1.021 (1.001-1.035)
[2024-10-18 12:57] LABS: Hemoglobin A1C 4.9 % (<5.7)
[2024-10-18 12:59] LABS: MALB Creatinine Ratio 8.0 mg/g (0-30)
[2024-10-18 13:07] LABS: Alanine Aminotransferase 19 U/L (6-35); Albumin Level 4.1 g/dL (3.5-5.1); Alkaline Phosphatase 94 U/L (38-126); Anion Gap 6 mmol/L (4-12); Aspartate Amino Transferase 38 U/L (14-36); Bilirubin,Total 0.6 mg/dL (0.2-1.3); Blood Urea Nitrogen 14 mg/dL (7-17); CRP < 0.5 mg/dL (<1.0); Calcium 9.2 mg/dL (8.4-10.2); Carbon Dioxide 28 mmol/L (22-30); Chloride 106 mmol/L (98-107); Cholesterol 178 mg/dL (0-200); Estimated Glomerular Filt Rate > 60; Glucose 127 mg/dL (65-110); HDL Direct 45 mg/dL; Potassium 3.8 mmol/L (3.4-5.0); Sodium 140 mmol/L (137-145); Total Protein 6.9 g/dL (6.3-8.2); Triglycerides 264 mg/dL (<150)
[2024-10-18 13:22] LABS: Free T3 3.34 pg/mL (2.71-6.16); Free T4 Free Thyroxine 1.04 ng/dL (0.78-2.19)
[2024-10-18 13:41] LABS: Carcinoembryonic Antigen 1.5 ng/mL (0.0-3.0); Thyroid Stimulating Hormone < 0.015 uIU/mL (0.465-4.680)
[2024-10-19 12:08] LABS: Anti-CCP Ab, IgG/IgA 6 units (0-19); FSH 71.4 mIU/mL (.)
[2024-10-22 14:08] LABS: Estrogens, Total 38 pg/mL (.)
[2024-10-25 13:08] LABS: Free Testosterone (Direct) 0.3 pg/mL (0.0-4.2)
== END 2024-10-18 12:13 | disposition home or self-care (01) ==
LOC: ANHLAB 12:13
PROVIDERS: PCP Internal Medicine; Visit Provider Internal Medicine
DX: E11.9 Type 2 diabetes mellitus without complications (principal); Z79.899 Other long term (current) drug therapy; K50.90 Crohn's disease, unspecified, without complications; R53.83 Other fatigue; I10 Essential (primary) hypertension; G89.29 Other chronic pain; D50.9 Iron deficiency anemia, unspecified; T50.B95A Adverse effect of other viral vaccines, initial encounter; D64.9 Anemia, unspecified
CPT/HCPCS: 36415; 80053; 80061; 81003; 82043; 82378; 82672; 83001; 83036; 84144; 84402; 84403; 84439; 84443; 84481; 85025; 85652; 86140; 86200; 86430

== ENCOUNTER 2024-10-26 06:51 | Outpatient (CLI) | payer OTHER, SELFPAY ==
--- NOTE | ~2024-10-26 | MR_ITS ---
MRI of the lumbar spine Clinical History: Radiculopathy Technique: Axial T2-weighted images, and sagittal T1-weighted, T2-weighted, and T2 fat-sat images wer e acquired. Findings: There is no fracture or subluxation of the lumbar spine. Vertebral bodies maintain normal h eight and alignment. No bone marrow signal abnormality seen. At L1-L2, there is mild edematous change. No disc bulge or herniation. There is minimal facet hypertr ophy. No spinal canal stenosis or neural foraminal narrowing. At L2-L3, there is no disc bulge or herniation. There is moderate facet hypertrophy. No spinal canal stenosis or neural foraminal narrowing. At L3-L4, there is minimal disc bulge with moderate facet hypertrophy. No spinal canal stenosis or ne ural foraminal narrowing. At L4-L5, there is diffuse disc bulge with severe facet arthropathy. There is a central disc protrusi on. There is severe spinal canal stenosis/thecal sac compression. There is moderate to advanced left neural foraminal narrowing, and mild right neural foraminal narrowing. At L5-S1, there is no disc bulge or herniation. There is severe facet arthropathy. No central canal s tenosis or neural foraminal narrowing. Paravertebral soft tissues are unremarkable. Impression: Severe degenerative spondylosis at L4-L5, as detailed above. Additional mild degenerative changes, as above. Reviewed, dictated and finalized at [facility]. Impression: Severe degenerative spondylosis at L4-L5, as detailed above. Additional mild degenerative changes, as above.
--- OUTSIDE RECORDS SUMMARY | 2024-10-26 06:55 | XMS_ITS | Encounter Summary ---
Author Organization [facility] [place] [address] Care Team Providers Care Skate Boarder Name Role Phone Tato Dias MD Primary Care Provider [phone] Molly [place] MD Primary Care Provider [phone] Encounter Details Date Type Department Care Team (Late st Contact Info) Description 09/01/2015 Abstract [facility] CONVERSION [address] [place] [address] , Generic Conversion, Social History Tobacco Use Types Packs/Day Years Used Date Smoking Tobacco: Never Assessed Comments Unknown Sex and Gender Information Value Date Recorded Sex Assigned at Female 06/22/2018 4:25 PM CDT Legal Sex Female 9:53 AM NET MVC DEVELOPER Gender Identity Female 06/22/2018 4:25 PM CDT [...] documented as of this encounter Care Teams Skate Boarder Relationship Specialty Start Date End Date Tato Dias MD PCP - General INTERNAL MEDICINE 04/12/18 06/04/21 [place] [address] [facility]. [address] [place] [address] PCP - General FAMILY PRACTICE 06/05/21 documented as of this encounter
--- OUTSIDE RECORDS SUMMARY | 2024-10-26 06:55 | XMS_ITS | Clinical Summary ---
Author Organization [facility] Address [address] [place] [address] Care Team Providers Care Construction Millwright Name Role Phone Molly [place] MD Primary [...] hyperglycemia, without long-term current use of insulin ([facility]) 04/19/2017 Overview (04/13/2018): Transitioned From: Diabetes mellitus, type II Assessment & Plan (09/08/2018 10:15 AM CDT): Excellent dietary control, with last hemoglobin A1c of 5.6 in December. Repeat this coming December. Findings more consistent with prediabetes. Hemangioma of liver 04/19/2017 Overview (08/24/2020): Found on CT scan 04/15/2017. 2 cm size. No additional monitoring necessary. Crohn's disease ([facility]) 01/07/2017 Overview (04/13/2018): Description: 2011 Assessment & [...] Ovarian cyst 06/15/2010 04/13/2018 Pancreatitis (HHS/HCC) 06/15/201004/13 Encounters Date Type Department Care Team Description 10/23/2024 7:11 AM CDT - 10/23/2024 11:59 PM CDT Hospital Encounter [facility] [address] [facility] [place] [address] Jhonny Finley MD Arrived Discharge Disposition: Home or Self Care (Routine Discharge) 10/23/2024 Travel from Last 3 Months Immunizations Immunization Administration Dates Next Due Dtap [...] PM CDT Legal Sex Female 9:53 AM VEHICLE DELIVERY WORKER Gender Identity Female 06/22/2018 4:25 PM CDT Sexual Orientation Straight 06/22/2018 4: 25 PM CDT Last Filed Vital Signs Vital Sign Reading Time Taken Comments Blood Pressure 132/70 03/17/2021 4:14 PM VEHICLE DELIVERY WORKER Pulse 96 03/17/2021 4:14 PM VEHICLE DELIVERY WORKER Temperature 37 C (98.6 F) 03/17/2021 4:14 PM VEHICLE DELIVERY WORKER Respiratory Rate 18 03/17/2021 4:14 PM VEHICLE DELIVERY WORKER Oxygen Saturation 99% 03/17/2021 4:14 PM VEHICLE DELIVERY WORKER Inhaled Oxygen Concentration - - Weight 94.3 kg (208 lb) 03/17/2021 4:14 PM VEHICLE DELIVERY WORKER Height 175.3 cm (5' 9) 03/17/2021 4:14 PM VEHICLE DELIVERY WORKER Body Mass Index 30.72 03/17/2021 4:14 PM VEHICLE DELIVERY WORKER Plan of Treatment Health Maintenance Due Date [...] Comments HEMOGLOBIN, GLYCOSYLATED Routine 03/17/2021 4:37 PM VEHICLE DELIVERY WORKER Medication management Type 2 diabetes mellitus with hyperglycemia, without long-term current use of insulin LIPID PANEL 12/26/2019 10:55 AM CDT COLONOSCOPY Routine 04/08/2017 12:00 AM VEHICLE DELIVERY WORKER OUTSIDE CYTOPATH CERV/VAG INTERPRET (PAP) Routine 10/18/2014 12:00 AM CDT from Last 3 Months or Most Recently Relevant to Health Maintenance Results * HEMOGLOBIN, GLYCOSYLATED (03/17/2021 4:37 PM VEHICLE DELIVERY WORKER) HGB A1C 7.1 % [id number] [facility] 03/17/2021 4:37 PM VEHICLE DELIVERY WORKER us Tato Dias MD LABORATORY Final Res ult -[id number] [facility] [address] [place] [address], * (ABNORMAL) LIPID PANEL (12/26/2019 10:55 AM [...] 10:08 AM CDT Performed at: 01 - [address] [id number] Field Reviewer: Erick Kruse PhD, Phone: [phone] us Tato Dias MD LABORATORY Final Res ult [facility] [address] [place] [address] [facility] 1 * Colonoscopy (04/08/2017 12:00 AM VEHICLE DELIVERY WORKER) 04/08/2017 04/08/2017 Narrative [facility] TO EPIC CONVERSION - 04/08/2017 12:00 AM VEHICLE DELIVERY WORKER Documented hx of procedure Procedure Note Salena Talavera MD - 01/15/2018 Documented hx of procedure us Generic Conversion Md TALAVERA GI PROCEDURE ORDERABLES Final Result [facility] TO EPIC CONVERSION * PAP SMEAR WITH HPV (10/18/2014 12:00 AM CDT) 10/18/2014 us Documents Scanned SCANNING Final Result [facility] from Last 3 Months or Most Recently Relevant to Health Maintenance Insurance [facility] Care Teams Construction Millwright Relationship Specialty [place] [address] [address] [place] [address] PCP - General FAMILY PRACTICE 06/05/21
--- OUTSIDE RECORDS SUMMARY | 2024-10-26 06:55 | XMS_ITS | Encounter Summary ---
Author Organization [facility] Address [facility] [place] [address] Care Team Providers Care Solid Waste Technician Name Role Phone Tato Dias MD Primary Care Provider [phone] Molly [place] MD Primary Care Provider [phone] Encounter Details Date Type Department Care Team (Late st Contact Info) Description 06/01/2021 MyChart Message Enc [facility] Medical Group [facility] [id number] [place] [address] Tato Dias MD [address] [facility] [address] [address] Appointment on 06/15/21 - Dr [...] PM CDT Legal Sex Female 9:53 AM LIBRARY MEDIA SPECIALIST Gender Identity Female 06/22/2018 4:25 PM CDT Sexual Orientation Straight 06/22/2018 4: 25 PM CDT documented as of this encounter Plan of Treatment Not on file documented as of this encounter Visit Diagnoses Not on filedocumented in this encounter Additional Health Concerns Assessment Noted Time PHQ-9 Depression Total Score: 21 022 4:20 PM LIBRARY MEDIA SPECIALIST documented as of this encounter Care Teams Solid Waste Technician Relationship Specialty Start Date End Date Tato Dias MD PCP - General INTERNAL MEDICINE 04/12/18 06/04/21 [place] [address] [facility]. [address] [place] [address] PCP - General FAMILY PRACTICE 06/05/21 documented as of this encounter
--- OUTSIDE RECORDS SUMMARY | 2024-10-26 06:55 | XMS_ITS | Clinical Summary ---
Author Organization [facility] Address [address] [place] [address] Care Team Providers Care Deputy Director Name Role Phone Tato Dias MD Primary Care Provider [phone] Pedro Tse MD Unavailable [phone] Source Comments [facility],non-owned Affiliates and Associated Physician Practices is amultiple site organization consisting of ambulatory clinics and hospital sitesin [place], [place], [place] and [place]. This disclosure is being madepursuant to the Care Everywhere program and may not contain all information available regarding this patient. Last updated 17.[facility] Allergies Active Allergy Reactions Criticality Noted Date Comments Sulf[facility] Drugs 03/17/2016 [facility] GI Discomfort Medium 01/07/2017 Medications * Be aware that medications may not be up to date on this document. Alwaysverify current medications with the patient. Hol-Fac-IZ-Fi sh Oil ([facility]) 0.4-113.5 MG CHEW [...] Diagnosed Date Supervision of high risk in [facility] 03/12/2016 Diabetes mellitus complicating , antepa rtum [...] patient's age to complete this topic Insurance [facility] CIGNA CIGNA [facility] MEDICAID - [place] CORD MEDICAID - OUT OF STATE [facility]LY [facility] CARE SELF PAY NO INSURANCE Member Subscriber Plan / Payer (Ef fective for All Dates) Name:Mikala Sauceda Member ID:Not on file Relation to Subscriber:Not on file Name:MIKALA SAUCEDA Subscriber ID:Not on file Address: [address] [place] [address] Payer ID:Not on file Group ID:Not on file Type:Self Pay Address: [facility] CARE SELF PAY NO INSURANCE Member Subscriber Plan / Payer (Ef fective for All Dates) Name:Mikala Sauceda Member ID:Not on file Relation to Subscriber:Not on file Name:MIKALA SAUCEDA Subscriber ID:Not on file Address: [address] [place] [address] Payer ID:Not on file Group ID:Not on file Type:Self Pay Address: [facility] Advance Directives * Full Code (Latest Code Status on File) Date Activated Date Inactivated Comments 06/09/2016 10:37 AM 06/09/2016 12:55 PM Care Teams Deputy Director Relationship Specialty Start Date End Date Tato Dias MD [address] [place] [address] PCP - General 08/28/18 Pedro Tse MD [address] [place] [address] 08/28/18
--- OUTSIDE RECORDS SUMMARY | 2024-10-26 06:55 | XMS_ITS | Encounter Summary ---
Author Organization [facility] Address [facility] [place] [address] Care Team Providers Care Wash Oil Pump Operator Name Role Phone Tato Dias MD Primary Care Provider [phone] Molly [place] MD Primary Care Provider [phone] Encounter Details Date Type Department Care Team (Late st Contact Info) Description 12/26/2017 Abstract [facility] CONVERSION [address] [place] [address] , Generic Conversion, Social History Tobacco Use Types Packs/Day Years Used Date Smoking Tobacco: Never Assessed Comments Unknown Sex and Gender Information Value Date Recorded Sex Assigned at Female 06/22/2018 4:25 PM CDT Legal Sex Female 9:53 AM SALES 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 [address] [place] [address] PCP - General FAMILY PRACTICE 06/05/21 documented as of this encounter
--- OUTSIDE RECORDS SUMMARY | 2024-10-26 06:55 | XMS_ITS | Encounter Summary ---
Author Organization [facility] Address [facility] [place] [address] Care Team Providers Care Credit Administration Specialist Name Role Phone Tato Dias MD Primary Care Provider [phone] Molly [place] MD Primary Care Provider [phone] Encounter Details Date Type Department Care Team (Latest Contact Info) Description 11/16/2017 Abstract [facility] Medical Group Salena Amanda MD Social History Tobacco Use Types Packs/Day Years Used Date Smoking Tobacco: Never Assessed Comments Unknown Sex and Gender Information Value Date Recorded Sex Assigned at Female 06/22/2018 4:25 PM CDT Legal Sex Female 9:53 AM EMERGENCY MANAGER Gender Identity Female 06/22/2018 4:25 PM [...] documented as of this encounter Care Teams Credit Administration Specialist Relationship Specialty Start Date End Date Tato Dias MD PCP - General INTERNAL MEDICINE 04/12/18 06/04/21 [place] [address] [facility] [address] PCP - General FAMILY PRACTICE 06/05/21 documented as of this encounter
--- OUTSIDE RECORDS SUMMARY | 2024-10-26 06:55 | XMS_ITS | Encounter Summary ---
Author Organization [facility] Address [facility] [place] [address] Care Team Providers Care Labor Arbitrator Hearing Office Name Role Phone Tato Dias MD Primary Care Provider [phone] Molly Leonard MD Primary Care Provider [phone] Encounter Details Date Type Department Care Team (Late st Contact Info) Description 09/04/2016 Abstract [facility] CONVERSION [address] [place] [address] , Generic Conversion, Social History Tobacco Use Types Packs/Day Years Used Date Smoking Tobacco: Never Assessed Comments Unknown Sex and Gender Information Value Date Recorded Sex Assigned at Female 06/22/2018 4:25 PM CDT Legal Sex Female 9:53 AM BUSINESS PRACTICES OFFICER Gender Identity Female 06/22/2018 4:25 PM CDT [...] documented as of this encounter Care Teams Labor Arbitrator Hearing Office Relationship Specialty Start Date End Date Tato Dias MD PCP - General INTERNAL MEDICINE 04/12/18 06/04/21 [place] [address] [facility]. [address] [place] [address] PCP - General FAMILY PRACTICE 06/05/21 documented as of this encounter
--- OUTSIDE RECORDS SUMMARY | 2024-10-26 06:55 | XMS_ITS | Encounter Summary ---
Author Organization [facility] Address [address] [place] [id number] Care Team Providers Care Bus Mechanic Name Role Phone Tato Dias MD Primary Care Provider [phone] Molly Leonard MD Primary Care Provider [phone] Encounter Details Date Type Department Care Team (Late st Contact Info) Description 04/13/2018 Abstract [facility] CONVERSION [address] [place] [address] , Generic Conversion, Social History Tobacco Use Types Packs/Day Years Used Date Smoking Tobacco: Every Day Cigarettes Smokeless Tobacco: Never Alcohol Use Standard Drinks/Week Comments Yes 0 (1 standard drink = 0.6 oz pur e alcohol) social Comments Unknown Sex and Gender Information Value Date Recorded Sex Assigned at Female 06/22/2018 4:25 PM CDT Legal Sex Female 9:53 AM RAILROAD SHOP INSPECTOR Gender Identity Female 06/22/2018 4:25 PM [...] documented as of this encounter Care Teams Bus Mechanic Relationship Specialty Start Date End Date Tato Dias MD PCP - General INTERNAL MEDICINE 04/12/18 06/04/21 [place] [address] [facility] [address] [place] [id number] PCP - General FAMILY PRACTICE 06/05/21 documented as of this encounter
--- OUTSIDE RECORDS SUMMARY | 2024-10-26 06:55 | XMS_ITS | Encounter Summary ---
Author Organization [facility] Address [facility] [place] [address] Care Team Providers Care Glove Tagger Name Role Phone Tato Dias MD Primary Care Provider [phone] Molly Leonard MD Primary Care Provider [phone] Encounter Details Date Type Department Care Team (Late st Contact Info) Description 09/10/2016 Abstract [facility] CONVERSION [address] [place] [address] , Generic Conversion, Social History Tobacco Use Types Packs/Day Years Used Date Smoking Tobacco: Never Assessed Comments Unknown Sex and Gender Information Value Date Recorded Sex Assigned at Female 06/22/2018 4:25 PM CDT Legal Sex Female 9:53 AM RECONCILIATION SPECIALIST Gender Identity Female 06/22/2018 4:25 PM [...] documented as of this encounter Care Teams Glove Tagger Relationship Specialty Start Date End Date Tato Dias MD PCP - General INTERNAL MEDICINE 04/12/18 06/04/21 [place] [address] [facility]. [address] [place] [address] PCP - General FAMILY PRACTICE 06/05/21 documented as of this encounter
== END 2024-10-26 06:52 | disposition home or self-care (01) ==
PROVIDERS: PCP Internal Medicine; Visit Provider Anesthesiology Pain Medicine
DX: M47.27 Other spondylosis with radiculopathy, lumbosacral region (principal); M48.062 Spinal stenosis, lumbar region with neurogenic claudication
CPT/HCPCS: 72148